=== PATIENT | female | born 1955 | race Caucasian/White ===

== ENCOUNTER 2017-05-13 19:40 | Emergency (ER) | payer MEDICARE ==
[2017-05-13 20:11] VITALS: PULSE 106; O2SAT 97
[2017-05-13 20:18] VITALS: BP 136/68
[2017-05-13] MEDS ORDERED: AMOXIL 500 MG PO ONE (20:18)
[2017-05-13] MEDS ORDERED: Mucinex 600MG ER Tabs PO ONE (20:18)
--- NOTE | 2017-05-13 20:26 | ERPHSYRPT ---
- History of Present Illness Time Seen by Provider: 05/13/17 20:19 Source: patient Exam Limitations: no limitations Patient Subjective Stated Complaint: pt states she has been coughing since yesterday. sttes she has been coughing up yellow mucous. and states she has been feeling unwell for approx 1 week Triage Nursing Assessment: pt alert and oriented, asnwers questions approp. pt ambulatory wqith steady gait noted. respirations nonlabored with lungs cta. skin pink warm and dry. Physician History: pt states she has been coughing since yesterday. sttes she has been coughing up yellow mucous. and states she has been feeling unwell for approx 1 week Timing/Duration: week(s) Cough Quality/Degree: dry cough Possible Cause: no prior episodes Associated Symptoms: fever International travel in last 2 weeks: No Allergies/Adverse Reactions: Sulfa (Sulfonamide Antibiotics) Allergy (Verified 05/13/17 20:14) Home Medications: Budesonide/Formoterol Fumarate [Symbicort 80-4.5 Mcg Inhaler] 2 puff IH BID 05/31 [History] Colesevelam HCl 625 mg [Welchol 625 mg] 1,875 mg PO BID 07/15/15 [History] Furosemide 40 mg [Lasix 40 MG] 40 mg PO DAILY 07/15/15 [History] Insulin Aspart [Novolog Flexpen] 15 unit SQ AC 07/15/15 [History] Levothyroxine Sodium 25 Mcg [Synthroid 25 Mcg] 25 mcg PO DAILY 07/15/15 [ History] Liraglutide [Victoza 2-Rah] 1.8 mg SQ BID 07/15/15 [History] Lisinopril 10 mg [Zestril 10 MG] 10 mg PO DAILY 07/15/15 [History] Mometasone Furoate [Nasonex] 2 spray NS DAILY 07/15/15 [History] Sitagliptin Phos/Metformin HCl [Janumet 50-500 mg Tablet] 1 tablet PO BID [History] Venlafaxine HCl ER 75 mg [Effexor XR 75 MG] 75 mg PO DAILY 07/15/15 [ History] Carvedilol 3.125 mg [Coreg 3.125 MG] 3.125 mg PO BID 07/31/15 [History] Nystatin Powder 15 gm [Nystop Powder 15 gm] 10 gm TP BIDPRN PRN 07/31/15 [ History] Potassium Chloride [Potassium Chloride 20MEQ/15ML] 20 meq PO TID 07/31/15 [ History] Hx Tetanus, Diphtheria Vaccination/Date Given: Yes Hx Influenza Vaccination/Date Given: Yes (feb 2017) Hx Pneumococcal Vaccination/Date Given: No Immunizations Up to Date: Yes - Review of Systems Constitutional: No Fever, No Chills Eyes: No Symptoms Ears, Nose, & Throat: No Symptoms Respiratory: Cough, No Dyspnea Cardiac: No Chest Pain, No Edema, No Syncope Abdominal/Gastrointestinal: No Abdominal Pain, No Nausea, No Vomiting, No Diarrhea Genitourinary Symptoms: No Dysuria Musculoskeletal: No Back Pain, No Neck Pain Skin: No Rash Neurological: No Dizziness, No Focal Weakness, No Sensory Changes Psychological: No Symptoms Endocrine: No Symptoms All Other Systems: Reviewed and Negative - Past Medical History Pertinent Past Medical History: Yes Neurological History: No Pertinent History ENT History: No Pertinent History Cardiac History: Other Respiratory History: Asthma, Bronchitis, Pneumonia Endocrine Medical History: Diabetes Type II Musculoskeletal History: No Pertinent History GI Medical History: No Pertinent History History: No Pertinent History Psycho-Social History: Depression Female Reproductive Disorders: Cervical Cancer Other Medical History: 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 heart, and leaky valve per pt - Past Surgical History Past Surgical History: Yes Gastrointestinal: Cholecystectomy Female Surgical History: Hysterectomy, Tubal Ligation Other Surgical History: D&C - Social History Smoking Status: Former smoker Exposure to second hand smoke: Yes Drug Use: none Patient Lives Alone: No - Nursing Vital Signs Nursing Vital Signs: Initial Vital Signs Temperature 99.0 F 05/13/17 20:02 Pulse Rate 106 H 05/13/17 20:02 Respiratory Rate 22 05/13/17 20:02 Blood Pressure 136/68 05/13/17 20:02 O2 Sat by Pulse Oximetry 96 05/13/17 20:02 Pain Scale Pain Intensity 0 - Physical Exam General Appearance: no apparent distress, alert Eye Exam: PERRL/EOMI, eyes nml inspection Ears, Nose, Throat Exam: normal ENT inspection, TMs normal, moist mucous membranes, pharyngeal erythema Neck Exam: normal inspection, non-tender, supple, full range of motion Respiratory Exam: normal breath sounds, lungs clear, No respiratory distress Cardiovascular Exam: regular rate/rhythm, normal heart sounds Gastrointestinal/Abdomen Exam: soft, No tenderness Back Exam: normal inspection, No CVA tenderness, No vertebral tenderness Extremity Exam: normal inspection, normal range of motion Neurologic Exam: alert, oriented x 3, cooperative, normal mood/affect, sensation nml, No motor deficits Skin Exam: normal color, warm, dry, No rash Lymphatic Exam: No adenopathy SpO2: 97 Oxygen Delivery: Room Air - Course Nursing assessment & vital signs reviewed: Yes Ordered Tests: Medication Summary Discontinued Medications Generic Name Dose Route Start Last Admin Trade Name Patrica PRN Reason Stop Dose Admin Amoxicillin 500 mg 05/13/17 20:18 Amoxil 500 Mg PO 05/13/17 20:19 STAT ONE Guaifenesin 1,200 mg 05/13/17 20:18 Mucinex 600mg Er Tabs PO 05/13/17 20:19 STAT ONE - Progress Progress: improved Air Movement: good Blood Culture(s) Obtained: No Antibiotics given: Yes Counseled pt/family regarding: diagnosis, need for follow-up - Departure Time of Disposition: 20:20 Departure Disposition: Home Clinical Impression: Bronchitis Condition: Good Critical Care Time: No Referrals: VON LIAO [Primary Care Provider] - Instructions: Bronchitis Additional Instructions: UPPER RESPIRATORY INFECTIONS 1. The signs and symptoms of a cold may last up to 10 days. These illnesses are due to viruses which are not treatable with antibiotics. 2. The following suggestions can aid in recovery and to minimize symptoms: A. Increase fluid intake. B. Acetaminophen or Ibuprofen as directed. C. Avoid smoking environments as this will increase the risk of developing pneumonia. D. For children, may use a cool mist vaporizer in the child's room. 3. Contact your Family Physician if you note: A. Persisten fever >103 for more than 3 days B. Breathing difficulty C. Productive cough of yellow/green sputum D. Illness greater than 7 days E. Persistent vomiting F. Stiff neck Prescriptions: Amoxicillin 500 mg Cap [Amoxil 500 mg] 500 mg PO TID #30 capsule Guaifenesin/Dextromethorphan [Mucinex Dm ER 600-30 mg Tablet] 1 each PO BID #20 tab.er.12h
[2017-05-13] MEDS ORDERED: AMOXIL 500 MG ONE (20:28)
== END 2017-05-13 21:12 | disposition home or self-care (01) ==
LOC: ED 19:40
DX: J40 Bronchitis, not specified as acute or chronic (principal)
CPT/HCPCS: 99283; A9270-GY

== ENCOUNTER 2018-03-07 05:47 | Day surgery (SDC) | payer MEDICARE ==
[2018-03-07] MEDS ORDERED: Ketamine HCl 50 MG/ML IV ONE (05:48)
[2018-03-07] MEDS ORDERED: DIPRIVAN 200 MG/20 ML IV ONE (05:48)
[2018-03-07] MEDS ORDERED: Lactated Ringers 1,000 ML IV SCH (06:00)
[2018-03-07] MEDS ORDERED: Lactated Ringers 1,000 ML IV ONE (06:37)
[2018-03-07 09:57] VITALS: BP 177/86; PULSE 102; O2SAT 95
--- NOTE | 2018-03-07 10:57 | OP ---
SURGERY DATE/TIME: 03/07/2018 0725 PREOPERATIVE DIAGNOSIS: Screening exam. POSTOPERATIVE DIAGNOSIS: Small polyp in the sigmoid colon. PROCEDURE: Colonoscopy with cold forceps biopsy of a polyp. SURGEON: Dr. Chavira. ANESTHESIA: MAC. Medications given by anesthesia department. HISTORY: The patient is a 62 year-old white female presenting now for screening colonoscopy. She was appraised of the risks of the procedure including the risk of perforation, phlebitis, untoward reaction to medication, bleeding and missed lesions. The patient verbalized her understanding and desired to have the procedure performed. DESCRIPTION OF PROCEDURE: The patient was given the medications by the anesthesia department. She had continuous pulse oximetry, ECG monitoring, intermittent blood pressure monitoring and tidal CO2 monitoring during the examination. She was placed in the left lateral decubitus position. A digital rectal examination was performed and revealed normal anal sphincter tone and no masses. The flexible Olympus pediatric colonoscope was used to intubate the rectum. A view of the colon was developed sequentially to the cecum. Upon insertion and withdrawal there was noted a small polyp in the proximal sigmoid colon which was biopsied using forceps and cold biopsy technique to destroy the lesion. No additional lesions were noted throughout the colon. The scope was removed from the patient who tolerated the procedure well and was sent back to OP recovery in good condition. The prep was noted to be good.
== END 2018-03-07 09:20 | disposition home or self-care (01) ==
LOC: SDC 05:47
PROVIDERS: ATTEND Family Medicine
DX: Z12.11 Encounter for screening for malignant neoplasm of colon (principal); K63.5 Polyp of colon; E11.9 Type 2 diabetes mellitus without complications; Z79.4 Long term (current) use of insulin; Z85.41 Personal history of malignant neoplasm of cervix uteri; Z79.899 Other long term (current) drug therapy
CPT/HCPCS: 82962; 94250; J2704

== ENCOUNTER 2019-02-05 17:02 | Emergency (ER) | payer MEDICARE ==
--- NOTE | 2019-02-05 17:17 | ERPHSYRPT ---
- History of Present Illness Time Seen by Provider: 02/05/19 17:17 Historian: patient Exam Limitations: no limitations Timing/Duration: day(s) (2 days ago onset), gradual onset Quality: cramping Abdominal Pain Onset Location: periumbilical Pain Radiation: no radiation Severity of Pain-Max: mild Severity of Pain-Current: mild Modifying Factors: Improves With: coughing Associated Symptoms: vomiting, No chest pain, No diaphoresis, No diarrhea, No fever/chills, No shortness of breath Previous symptoms: no prior history Allergies/Adverse Reactions: Sulfa (Sulfonamide Antibiotics) Allergy (Verified 02/05/19 17:27) Home Medications: Colesevelam HCl 625 mg [Welchol 625 mg] 1,875 mg PO BID 07/15/15 [History] Furosemide 40 mg [Lasix 40 MG] 40 mg PO DAILY 07/15/15 [History] Insulin Aspart [Novolog Flexpen] 15 unit SQ AC 07/15/15 [History] Levothyroxine Sodium 25 Mcg [Synthroid 25 Mcg] 25 mcg PO DAILY 07/15/15 [ History] Liraglutide [Victoza 2-Rah] 1.8 mg SQ BID 07/15/15 [History] Lisinopril 10 mg [Zestril 10 MG] 10 mg PO DAILY 07/15/15 [History] Sitagliptin Phos/Metformin HCl [Janumet 50-500 mg Tablet] 1 tablet PO BID [History] Venlafaxine HCl ER 75 mg [Effexor XR 75 MG] 75 mg PO DAILY 07/15/15 [ History] Carvedilol 3.125 mg [Coreg 3.125 MG] 12.5 mg PO BID 07/31/15 [History] Potassium Chloride [Potassium Chloride 20MEQ/15ML] 20 meq PO TID 07/31/15 [ History] Metformin HCl 500 mg [Glucophage 500 MG] 500 mg PO BIDWM 03/02/18 [History ] Omeprazole 40 mg PO DAILY 03/02/18 [History] Albuterol Sulfate [Ventolin Hfa] 2 puffs PO QID 02/05/19 [History] Atorvastatin Calcium 40 mg PO DAILY 02/05/19 [History] Budesonide/Formoterol Fumarate [Symbicort 80-4.5 Mcg Inhaler] 2 puff PO DAILY [History] Fluticasone Propionate [Flonase NASAL] 1 spray .ROUTE DAILY 02/05/19 [ History] Hx Tetanus, Diphtheria Vaccination/Date Given: Yes Hx Influenza Vaccination/Date Given: Yes (feb 2017) Hx Pneumococcal Vaccination/Date Given: No - Review of Systems Constitutional: No Symptoms, No Fever, No Chills Eyes: No Symptoms Ears, Nose, & Throat: No Symptoms Respiratory: Cough, No Dyspnea, No Dyspnea on Exertion (MASSEY), No Stridor, No Wheezing Cardiac: No Symptoms, No Chest Pain, No Edema, No Syncope Abdominal/Gastrointestinal: Abdominal Pain, Nausea, Vomiting, No Diarrhea Genitourinary Symptoms: No Symptoms, No Dysuria Musculoskeletal: No Symptoms, No Back Pain, No Neck Pain Skin: No Symptoms, No Rash Neurological: No Symptoms, No Dizziness, No Focal Weakness, No Sensory Changes Psychological: No Symptoms Endocrine: No Symptoms All Other Systems: Reviewed and Negative - Past Medical History Pertinent Past Medical History: Yes Neurological History: No Pertinent History ENT History: No Pertinent History Cardiac History: Other Respiratory History: Asthma, Bronchitis, Pneumonia Endocrine Medical History: Diabetes Type II Musculoskeletal History: No Pertinent History GI Medical History: No Pertinent History History: No Pertinent History Psycho-Social History: Depression Female Reproductive Disorders: Cervical Cancer Other Medical History: 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 heart, and leaky valve per pt - Past Surgical History Past Surgical History: Yes Neuro Surgical History: No Pertinent History Cardiac: No Pertinent History Respiratory: No Pertinent History Gastrointestinal: Cholecystectomy Genitourinary: No Pertinent History Musculoskeletal: No Pertinent History Female Surgical History: Hysterectomy, Tubal Ligation Other Surgical History: D&C - Social History Smoking Status: Former smoker Exposure to second hand smoke: Yes Drug Use: none Patient Lives Alone: No - Nursing Vital Signs Nursing Vital Signs: Initial Vital Signs Temperature 97.1 F 02/05/19 17:15 Pulse Rate 97 H 02/05/19 17:15 Respiratory Rate 18 02/05/19 17:15 Blood Pressure 143/59 02/05/19 17:15 O2 Sat by Pulse Oximetry 96 02/05/19 17:15 Pain Scale Pain Intensity 0 - Physical Exam General Appearance: no apparent distress, obese Eye Exam: PERRL/EOMI, eyes nml inspection Ears, Nose, Throat Exam: normal ENT inspection Neck Exam: normal inspection, non-tender Respiratory Exam: airway intact, rhonchi, No respiratory distress, No wheezing Cardiovascular Exam: regular rate/rhythm, normal heart sounds Gastrointestinal/Abdomen Exam: soft, normal bowel sounds, tenderness (mild, periumbilical and lower) Pelvic Exam: not done Rectal Exam: deferred Extremity Exam: normal inspection, normal range of motion Neurologic Exam: alert, oriented x 3, cooperative, normal mood/affect Skin Exam: normal color, warm, dry - Course EKG Interpreted by Me: RATE ([id number]), Sinus Tach, NORMAL AXIS, NORMAL INTERVALS, NORMAL QRS, Non-specific ST Changes - Radiology Exams Chest X-ray Interpretation: Interpreted by me, Reviewed by me, Negative Left Knee X-ray Interpretation: Interpreted by me, Reviewed by me, Negative - CT Exams Abdomen/Pelvis CT Interpretation: Negative, Discussed w/radiologist, No appendicitis Ordered Tests: Active Orders 24 hr Category Date Time Status EKG-ER Only STAT Care 02/05/19 17:51 Active IV Insertion STAT Care 02/05/19 17:51 Active ABDOMEN AND PELVIS W/0 CONTRAS [CT] Stat Exams 02/05/19 18:37 Taken CHEST 1 VIEW (PORTABLE) Stat Exams 02/05/19 17:52 Taken KNEE (3 VIEWS) Stat Exams 02/05/19 18:37 Taken AMYLASE Stat Lab 02/05/19 18:05 Completed CBC W DIFF Stat Lab 02/05/19 18:05 Completed CMP Stat Lab 02/05/19 18:05 Completed CULTURE,URINE Stat Lab 02/05/19 17:45 Received LIPASE Stat Lab 02/05/19 18:05 Completed TROPONIN Q3H Lab 02/05/19 18:05 Completed UA W/RFX UR CULTURE Stat Lab 02/05/19 17:45 Completed Medication Summary Discontinued Medications Generic Name Dose Route Start Last Admin Trade Name Freq PRN Reason Stop Dose Admin Lactated Ringer's 1,000 mls @ 999 mls/hr 02/05/19 17:50 02/05/19 19:44 Lactated Ringers IV 02/05/19 18:50 Infused .Q1H1M ONE Infusion Lactated Ringer's Confirm 02/05/19 17:58 Lactated Ringers Administered 02/05/19 17:59 Dose 1,000 mls @ ud IV .STK-MED ONE Ondansetron HCl 4 mg 02/05/19 17:50 02/05/19 17:59 Zofran 4 Mg/2 Ml Vial IV 02/05/19 17:51 4 mg STAT ONE Administration Ondansetron HCl Confirm 02/05/19 17:58 Zofran 4 Mg/2 Ml Vial Administered 02/05/19 17:59 Dose 4 mg .ROUTE .STK-MED ONE Lab/Rad Data: Laboratory Result Diagrams 02/05/19 18:05 02/05/19 18:05 Laboratory Results 02/05/19 02/05/19 02/05/19 Range/Units 18:05 18:05 18:05 WBC 6.7 (4.0-10.5) K/mm3 RBC 3.80 L (4.1-5.4) M/mm3 Hgb 11.3 L (12.0-16.0) gm/dl Hct 36.8 (35-47) % MCV 96.8 (78-100) fl MCH 29.7 (26-32) pg MCHC 30.7 L (32-36) g/dl RDW 14.8 H (11.5-14.0) % Plt Count 254 (150-450) K/mm3 MPV 10.4 H (6-9.5) fl Gran % 63.5 (36.0-66.0) % Eos # (Auto) 0.25 (0-0.5) Absolute Lymphs (auto) 1.56 (1.0-4.6) Absolute Monos (auto) 0.62 (0.0-1.3) Lymphocytes % 23.2 L (24.0-44.0) % Monocytes % 9.2 (0.0-12.0) % Eosinophils % 3.7 (0.00-5.0) % Basophils % 0.4 (0.0-0.4) % Absolute Granulocytes 4.25 (1.4-6.9) Basophils # 0.03 (0-0.4) Sodium 147 H (137-145) mmol/L Potassium 4.4 (3.5-5.1) mmol/L Chloride 112 H (98-107) mmol/L Carbon Dioxide 27 (22-30) mmol/L Anion Gap 12.1 (5-15) MEQ/L BUN 16 (7-17) mg/dL Creatinine 0.75 (0.52-1.04) mg/dL Estimated GFR > 60.0 ML/MIN Glucose 118 H (74-106) mg/dL Calcium 9.2 (8.4-10.2) mg/dL Total Bilirubin 0.40 (0.2-1.3) mg/dL AST 52 H (14-36) U/L ALT 27 (0-35) U/L Alkaline Phosphatase 100 (38-126) U/L Troponin I < 0.012 (0.000-0.034) ng/mL Serum Total Protein 7.5 (6.3-8.2) g/dL Albumin 4.2 (3.5-5.0) g/dL Amylase 64 (30-110) U/L Lipase 92 (23-300) U/L Urine Color (YELLOW) Urine Appearance (CLEAR) Urine pH (5-6) Ur Specific [place] (1.005-1.025) Urine Protein (Negative) Urine Ketones (NEGATIVE) Urine Blood (0-5) Oliver/ul Urine Nitrite (NEGATIVE) Urine Bilirubin (NEGATIVE) Urine Urobilinogen (0-1) mg/dL Ur Leukocyte Esterase (NEGATIVE) Urine WBC (Auto) (0-5) /HPF Urine RBC (Auto) (0-2) /HPF U Hyaline Cast (Auto) (0-2) /LPF U Epithel Cells (Auto) (FEW) /HPF Urine Bacteria (Auto) (NEGATIVE) /HPF Urine Mucus (Auto) (NEGATIVE) /HPF Urine Culture Reflexed (NO) Urine Glucose (NEGATIVE) mg/dL 02/05/19 Range/Units 17:45 WBC (4.0-10.5) K/mm3 RBC (4.1-5.4) M/mm3 Hgb (12.0-16.0) gm/dl Hct (35-47) % MCV (78-100) fl MCH (26-32) pg MCHC (32-36) g/dl RDW (11.5-14.0) % Plt Count (150-450) K/mm3 MPV (6-9.5) fl Gran % (36.0-66.0) % Eos # (Auto) (0-0.5) Absolute Lymphs (auto) (1.0-4.6) Absolute Monos (auto) (0.0-1.3) Lymphocytes % (24.0-44.0) % Monocytes % (0.0-12.0) % Eosinophils % (0.00-5.0) % Basophils % (0.0-0.4) % Absolute Granulocytes (1.4-6.9) Basophils # (0-0.4) Sodium (137-145) mmol/L Potassium (3.5-5.1) mmol/L Chloride (98-107) mmol/L Carbon Dioxide (22-30) mmol/L Anion Gap (5-15) MEQ/L BUN (7-17) mg/dL Creatinine (0.52-1.04) mg/dL Estimated GFR ML/MIN Glucose (74-106) mg/dL Calcium (8.4-10.2) mg/dL Total Bilirubin (0.2-1.3) mg/dL AST (14-36) U/L ALT (0-35) U/L Alkaline Phosphatase (38-126) U/L Troponin I (0.000-0.034) ng/mL Serum Total Protein (6.3-8.2) g/dL Albumin (3.5-5.0) g/dL Amylase (30-110) U/L Lipase (23-300) U/L Urine Color YELLOW (YELLOW) Urine Appearance CLOUDY (CLEAR) Urine pH 5.0 (5-6) Ur Specific [place] 1.027 (1.005-1.025) Urine Protein 30 (Negative) Urine Ketones NEGATIVE (NEGATIVE) Urine Blood NEGATIVE (0-5) Oliver/ul Urine Nitrite NEGATIVE (NEGATIVE) Urine Bilirubin NEGATIVE (NEGATIVE) Urine Urobilinogen 2 (0-1) mg/dL Ur Leukocyte Esterase NEGATIVE (NEGATIVE) Urine WBC (Auto) 6-10 (0-5) /HPF Urine RBC (Auto) 0-2 (0-2) /HPF U Hyaline Cast (Auto) 0-2 (0-2) /LPF U Epithel Cells (Auto) MODERATE (FEW) /HPF Urine Bacteria (Auto) MODERATE (NEGATIVE) /HPF Urine Mucus (Auto) MODERATE (NEGATIVE) /HPF Urine Culture Reflexed NO (NO) Urine Glucose NEGATIVE (NEGATIVE) mg/dL - Progress Progress: improved, re-examined Progress Note: 02/05/19 22:26 She feels well after IVF and zofran. Ask for cheratussin AC cough syrup (had it in the past). Rx that for viral bronchitis and zofran for mild viral GE. Counseled pt/family regarding: lab results, diagnosis, need for follow-up, rad results - Departure Departure Disposition: Home Clinical Impression: Bronchitis, Post-tussive emesis Nausea & vomiting Qualifiers: Vomiting type: unspecified Vomiting Intractability: non-intractable Qualified Code(s): R11.2 - Nausea with vomiting, unspecified Condition: Stable Critical Care Time: No Referrals: VON LIAO [Primary Care Provider] - Instructions: Nausea -- Adult Additional Instructions: Med. as directed, advance diet as able, recheck if not better. Plan of Treatment: Rx and recheck prn. Prescriptions: Ondansetron ODT 4 MG [Zofran Odt 4 mg] 4 mg PO Q6H PRN PRN #12 tab.rapdis PRN Reason: Nausea/Vomiting Guaifenesin/Codeine Phos [Cheratussin AC Syrup] 10 ml PO Q4-6HPRN PRN #238 liquid PRN Reason: Cough
[2019-02-05] MEDS ORDERED: Zofran 4 MG/2 ML VIAL IV ONE (17:50)
[2019-02-05] MEDS ORDERED: Lactated Ringers 1,000 ML IV ONE ×2 (17:50→17:58)
[2019-02-05] MEDS ORDERED: Zofran 4 MG/2 ML VIAL ONE (17:58)
[2019-02-05 18:10] LABS: BASOPHIL % 0.4 % (0.0-0.4); Basophil (Absolute #) 0.03 (0-0.4); Eosinophil % 3.7 % (0.00-5.0); Eosinophil (Absolute #) 0.25 (0-0.5); Granulocyte Absolute (ANC) 4.25 (1.4-6.9); Granulocytes % 63.5 % (36.0-66.0); Hematocrit 36.8 % (35-47); Hemoglobin 11.3 gm/dl (12.0-16.0); Lymphocyte (Absolute #) 1.56 (1.0-4.6); Lymphocytes % 23.2 % (24.0-44.0); Mean Cell Volume 96.8 fl (78-100); Mean Corpuscular Hemoglobin 29.7 pg (26-32); Mean Corpuscular Hgb Concent. 30.7 g/dl (32-36); Mean Platelet Volume 10.4 fl (6-9.5); Monocyte (Absolute #) 0.62 (0.0-1.3); Monocytes % 9.2 % (0.0-12.0); Platelet Count 254 K/mm3 (150-450); Red Cell Distribution Width 14.8 % (11.5-14.0); White Blood Count 6.7 K/mm3 (4.0-10.5)
[2019-02-05 18:19] LABS: Appearance CLOUDY (CLEAR); Bacteria MODERATE /HPF (NEGATIVE); Bilirubin NEGATIVE (NEGATIVE); Blood NEGATIVE Ery/ul (0-5); Epithelial Cells MODERATE /HPF (FEW); Glucose NEGATIVE (NEGATIVE); Hyaline Casts 0-2 /LPF (0-2); Ketones NEGATIVE (NEGATIVE); Leukocyte Esterase NEGATIVE (NEGATIVE); Mucus MODERATE /HPF (NEGATIVE); Nitrite NEGATIVE (NEGATIVE); Protein,Urine Dip 30 (Negative); RBC 0-2 /HPF (0-2); Specific Gravity 1.027 (1.005-1.025); Urobilinogen 2 mg/dL (0-1)
[2019-02-05 18:22] LABS: ALBUMIN 4.2 g/dL (3.5-5.0); ALKALINE PHOSPHATASE 100 U/L (38-126); AMYLASE 64 U/L (30-110); ANION GAP 12.1 MEQ/L (5-15); BLOOD UREA NITROGEN 16 mg/dL (7-17); CHLORIDE 112 mmol/L (98-107); Calcium 9.2 mg/dL (8.4-10.2); Carbon Dioxide 27 mmol/L (22-30); Creatinine 1 0.75 mg/dL (0.52-1.04); Glucose 118 mg/dL (74-106); LIPASE 92 U/L (23-300); Potassium 4.4 mmol/L (3.5-5.1); SGOT/AST 52 U/L (14-36); SGPT/ALT 27 U/L (0-35); SODIUM 147 mmol/L (137-145); Total Protein 7.5 g/dL (6.3-8.2)
[2019-02-05 19:43] VITALS: BP 125/74
[2019-02-05 20:04] VITALS: PULSE 98; O2SAT 96
--- NOTE | 2019-02-06 09:54 | XRAY ---
Exam: AP upright portable chest film sitting on a cart from 02/05/2019. Comparison: PA and lateral upright chest films from 07/09/2016 and 03/30/2016. Indication: Vomiting. Findings: The film was obtained in a lordotic projection. There is mild tortuosity of both the ascending and descending thoracic aorta representing no change. I believe there is some mild streaky chronic discoid atelectasis or fibrotic scarring within the right suprahilar projection. This appear to be more prominent on the prior chest films. The lungs are mildly hypoinflated. Pulmonary vascularity is within normal limits. The remainder the lung mcallister appears clear. No pneumothorax or pleural effusion is seen. No acute osseous process is seen. I believe there are probably bilateral cervical ribs at C7, better developed on the right than left. In fact, there may be fusion between the cervical rib of C7 on the right and the right first thoracic rib. Impression: 1. I note a small focus of fibrotic scarring or chronic discoid atelectasis within the right suprahilar projection. This appears somewhat less prominent as compared to 07/09/2016. 2. Lordotic AP chest film revealing no other acute cardiopulmonary disease. 3. Probable bilateral cervical ribs at C7, more developed on the right than left.
--- NOTE | 2019-02-06 16:20 | XRAY ---
Exam: CT of the abdomen and pelvis without IV contrast from 02/05/2019. CTDI: 23.68 mGy Comparison: CT of the abdomen without and with IV contrast from 07/16/2010. 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 Technique: Non-IV contrast axial images were obtained through the abdomen and pelvis. Reconstructed coronal and sagittal images were created and reviewed. Findings: The patient is morbidly obese. The CT weld fitter image reveals moderate right hip osteoarthritis which has progressed as compared to 07/16/2010. Degenerative disc disease appears to have progressed at T11-T12 as compared to 07/16/2010 as well. Advanced degenerative disc disease at L1-L2 appears about the same. The lung bases appear clear. Assessment of the solid organs of the abdomen is limited without the use of IV contrast. The liver appears mildly enlarged. No definite focal hepatic mass or intrahepatic biliary duct distention is seen. The gallbladder is partially distended and reveals no dense calcifications within it. The spleen measures a maximum of about 13 cm in transverse diameter which is borderline enlarged. I believe this is similar to 07/16/2010. No focal splenic mass is seen. The pancreas appears grossly unremarkable. The adrenal glands reveal an oval-shaped nodule within the right adrenal gland measuring about 1.8 cm x 1.2 cm in cross section on axial image #18. This is not well seen on the prior study. It measures an average of +54 Hounsfield units. Therefore, I cannot definitively say that this represents an adenoma. Consider further evaluation with MRI of the adrenal glands with in phase and out of phase imaging, or alternatively, a CT of the abdomen with attention to the adrenal glands with IV contrast per adrenal gland protocol. The left adrenal gland appears unremarkable. The kidneys appear of normal size and shape. No renal calculi or hydronephrosis is seen. No gross renal mass is seen. The abdominal aorta are is mildly tortuous and reveals minimal atherosclerotic vascular calcification within the abdominal aorta and right common iliac artery. No abnormal retroperitoneal lymphadenopathy is seen. I see no free intraperitoneal air. I again note a fat-containing umbilical hernia which contains a calcium rimmed, oval shaped, soft tissue density within it just to the left of midline measuring about 2.4 cm in AP dimension, 1.7 cm in width, and 2.5 cm in craniocaudal dimension. This could possibly relate to focal fat necrosis or a calcified lymph node. The umbilical hernia measures about 3.2 cm in width, 4.6 cm in craniocaudal dimension, and 3.3 cm in AP depth. The bowel appears nonobstructed. The appendix is not well seen, but I see no secondary findings to suggest appendicitis. Furthermore, the patient has a surgical history of prior appendectomy. Scattered colonic stool is noted. The uterus appears to be surgically absent. No free intraperitoneal fluid is seen. The urinary bladder is only minimally distended. The deep pelvic sidewalls are unremarkable. No enlarged pelvic lymph nodes or other pelvic mass is seen. The skeleton reveals mild degenerative changes within both sacroiliac joints, left greater than right. Posterior lumbar facet joint arthropathy is seen, most severe at L4-L5 and L5-S1 bilaterally. There is slight anterolisthesis of L4 over L5 which I believe is due to posterior facet joint arthropathy, as no spondylolysis is seen. There is moderate degenerative disc disease at L5-S1. I also note marked degenerative disc disease at L1-L2 and T11-T12. There is at least moderate osteoarthritis of the right hip which has progressed as compared to 07/16/2010. No acute osseous process is seen. Impression: 1. There is again noted to be a fat-containing umbilical hernia, but I now detect a new calcium rimmed, oval-shaped, soft tissue density within the umbilical hernia sac measuring 2.4 cm x 1.7 cm x 2.5 cm. This soft tissue density contains a focal low-attenuation center suggesting fat. This may possibly relate to focal fat necrosis or a calcified lymph node. 2. The liver appears mildly enlarged. The spleen is borderline enlarged. These findings appear similar to 07/16/2010. 3. There appears to be a small oval-shaped solid nodule within the right adrenal gland which is easier to see on today's exam as compared to 07/16/2010. See axial images #17 and #18. See above discussion and recommendations. 4. Surgically absent uterus. 5. Skeletal findings, as discussed above. Some osteoarthritis has progressed. 6. No other acute process is seen within the abdomen or pelvis.
--- NOTE | 2019-02-06 21:24 | XRAY ---
Exam: 4 views of the left knee from 02/05/2019. Comparison: None. Indication: Fall, left knee bruising. Findings: AP, both oblique images, and a crosstable lateral of the left knee were obtained.. I see no acute fracture, dislocation, or suprapatellar joint effusion. There is mild to moderate narrowing of the medial compartment of the left knee joint with some mild osteophyte formation on both sides of the joint space medially. The lateral compartment of the left knee joint space is adequately preserved, although I see some minimal marginal osteophyte formation laterally on both sides of the joint space, too. Mild hypertrophic spurring of the tibial eminences is seen. I suspect moderate narrowing of the patellofemoral joint with mild marginal spurring on both sides of the patellofemoral joint. A calcified fabella is seen posterior to the left knee on the lateral image. No focal bone destruction is seen. Some soft tissue prominence is seen about the left knee. Correlate clinically. No radiopaque soft tissue foreign body is seen. Impression: 1. No acute left knee fracture, dislocation, or suprapatellar joint effusion is seen. 2. There is mild generalized soft tissue prominence about the left knee. Correlate clinically. No radiopaque soft tissue foreign body is seen. 3. There is mild to moderate tricompartmental osteoarthritis of the left knee, affecting the patellofemoral joint and medial compartment to the greatest extent.
== END 2019-02-05 20:06 | disposition home or self-care (01) ==
LOC: ED 17:02
DX: J40 Bronchitis, not specified as acute or chronic (principal); R11.2 Nausea with vomiting, unspecified
CPT/HCPCS: 36000; 36415; 71045; 73562; 74176; 80053; 81001; 82150; 83690; 84484; 85025; 87077; 87086; 87186; 93005; 96360; 96374; 99284; J2405

== ENCOUNTER 2019-03-18 16:00 | Emergency (ER) | payer MEDICARE ==
--- NOTE | 2019-03-18 16:43 | ERPHSYRPT ---
- History of Present Illness Time Seen by Provider: 03/18/19 16:30 Source: patient Exam Limitations: no limitations Patient Subjective Stated Complaint: pt alert and walked in, resp labored with excertion which is normal for her, skin w/d/p. slight edema to lower legs that is normal Triage Nursing Assessment: pt here for a cough for 2 weeks now, was seen by and placed on tesslon pearls. but continues to cough, no fever. Physician History: Cough and congestion for 2 weeks. Medical provider called in prescriptions 2 days ago without seeing her. Symptoms worsened over the past two days in regards to chest congestion and starting to lose voice. Timing/Duration: week(s) (2) Cough Quality/Degree: moderate, dry cough Possible Cause: no prior episodes Modifying Factors: Worsens With: coughing Associated Symptoms: nasal congestion, nasal drainage, wheezing, No fever, No chills, No chest pain/soreness, No cough, No dizziness, No earache, No facial pain, No headache, No lightheadedness, No muscle aches, No shortness of breath, No sinus infection, No sore throat International travel in last 2 weeks: No Allergies/Adverse Reactions: Sulfa (Sulfonamide Antibiotics) Allergy (Verified 03/18/19 16:35) Home Medications: Colesevelam HCl 625 mg [Welchol 625 mg] 1,875 mg PO BID 07/15/15 [History] Furosemide 40 mg [Lasix 40 MG] 40 mg PO DAILY 07/15/15 [History] Insulin Aspart [Novolog Flexpen] 15 unit SQ AC 07/15/15 [History] Levothyroxine Sodium 25 Mcg [Synthroid 25 Mcg] 25 mcg PO DAILY 07/15/15 [ History] Liraglutide [Victoza 2-Rah] 1.8 mg SQ BID 07/15/15 [History] Lisinopril 10 mg [Zestril 10 MG] 10 mg PO DAILY 07/15/15 [History] Sitagliptin Phos/Metformin HCl [Janumet 50-500 mg Tablet] 1 tablet PO BID [History] Venlafaxine HCl ER 75 mg [Effexor XR 75 MG] 75 mg PO DAILY 07/15/15 [ History] Carvedilol 3.125 mg [Coreg 3.125 MG] 12.5 mg PO BID 07/31/15 [History] Potassium Chloride [Potassium Chloride 20MEQ/15ML] 20 meq PO TID 07/31/15 [ History] Metformin HCl 500 mg [Glucophage 500 MG] 500 mg PO BIDWM 03/02/18 [History ] Omeprazole 40 mg PO DAILY 03/02/18 [History] Albuterol Sulfate [Ventolin Hfa] 2 puffs PO QID 02/05/19 [History] Atorvastatin Calcium 40 mg PO DAILY 02/05/19 [History] Budesonide/Formoterol Fumarate [Symbicort 80-4.5 Mcg Inhaler] 2 puff PO DAILY [History] Fluticasone Propionate [Flonase NASAL] 1 spray .ROUTE DAILY 02/05/19 [ History] Hx Tetanus, Diphtheria Vaccination/Date Given: Yes Hx Influenza Vaccination/Date Given: Yes Hx Pneumococcal Vaccination/Date Given: Yes Immunizations Up to Date: Yes - Review of Systems Constitutional: No Fever, No Chills, No Fatigue Eyes: No Eye Pain, No Vision Changes Ears, Nose, & Throat: Nose Congestion, Nose Discharge, Sinus Drainage, Hoarse, No Ear Pain, No Mouth Swelling, No Throat Pain, No Throat Swelling, No Painful Swallowing Respiratory: Cough, No Dyspnea, No Dyspnea on Exertion (MASSEY) Cardiac: No Chest Pain, No Edema, No Palpitations, No Syncope Abdominal/Gastrointestinal: No Abdominal Pain, No Nausea, No Vomiting, No Melena Genitourinary Symptoms: No Dysuria, No Frequency, No Hematuria, No Flank Pain Musculoskeletal: No Back Pain, No Neck Pain Skin: No Pruritis, No Rash Neurological: No Focal Weakness, No Headache, No Lethargy, No Parasthesia, No Speech Changes Psychological: No Anxiety Endocrine: No Excessive Sweating Hematologic/Lymphatic: No Easy Bleeding, No Easy Bruising All Other Systems: Reviewed and Negative - Past Medical History Pertinent Past Medical History: Yes Neurological History: No Pertinent History ENT History: No Pertinent History Cardiac History: Other Respiratory History: Asthma, Bronchitis, Pneumonia Endocrine Medical History: Diabetes Type II Musculoskeletal History: No Pertinent History GI Medical History: No Pertinent History History: No Pertinent History Psycho-Social History: Depression Female Reproductive Disorders: Cervical Cancer Other Medical History: 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 heart, and leaky valve per pt - Past Surgical History Past Surgical History: Yes Neuro Surgical History: No Pertinent History Cardiac: No Pertinent History Respiratory: No Pertinent History Gastrointestinal: Cholecystectomy Genitourinary: No Pertinent History Musculoskeletal: No Pertinent History Female Surgical History: Hysterectomy, Tubal Ligation Other Surgical History: D&C - Social History Smoking Status: Former smoker Exposure to second hand smoke: No Drug Use: none Patient Lives Alone: No - Female History Hx Last Menstrual Period: psot Hx Now: No - Nursing Vital Signs Nursing Vital Signs: Initial Vital Signs Temperature 98.3 F 03/18/19 16:27 Pulse Rate 108 H 03/18/19 16:27 Respiratory Rate 22 03/18/19 16:27 Blood Pressure 158/80 03/18/19 16:27 O2 Sat by Pulse Oximetry 94 L 03/18/19 16:27 Pain Scale Pain Intensity 10 - Physical Exam General Appearance: no apparent distress, alert Eye Exam: PERRL/EOMI, eyes nml inspection, No scleral icterus, No pale conjunctivae, No photophobia Ears, Nose, Throat Exam: normal ENT inspection, TMs normal, pharynx normal, moist mucous membranes, No dry mucous membranes, No TM abnormal (R), No TM abnormal (L), No pharyngeal erythema, No tonsillar exudate Neck Exam: normal inspection, non-tender, supple, full range of motion, No meningismus, No Brudzinski, No lymphadenopathy, No midline tenderness Respiratory Exam: lungs clear, airway intact, diminished breath sounds, No chest tenderness, No respiratory distress, No accessory muscle use, No prolonged expirations, No crackles/rales, No rhonchi, No wheezing, No stridor, No pleural rub Cardiovascular Exam: regular rate/rhythm, normal heart sounds, normal peripheral pulses, capillary refill <2 sec Gastrointestinal/Abdomen Exam: soft, normal bowel sounds, No tenderness, No distention, No guarding, No rebound Back Exam: normal inspection, normal range of motion, No CVA tenderness, No vertebral tenderness, No rash Extremity Exam: normal inspection, normal range of motion, pelvis stable, No calf tenderness, No janet's sign, No swelling Neurologic Exam: alert, oriented x 3, cooperative, testing projects administrator II-XII nml as tested, normal mood/affect, sensation nml, No motor deficits Skin Exam: normal color, warm, dry, No rash, No petechiae, No jaundice, No cyanosis, No ecchymosis SpO2 Interpretation: normal SpO2: 94 O2 Delivery: Room Air - Course Nursing assessment & vital signs reviewed: Yes - Radiology Exams Chest X-ray Interpretation: Interpreted by me, Reviewed by me, No Fracture, Other (no change in comparison to Chest X-Ray from 02/05/2019) Ordered Tests: Active Orders 24 hr Category Date Time Status CHEST 1 VIEW (PORTABLE) Stat Exams 03/18/19 16:35 Taken Peak Expiratory Flow Rate DAILY RT 03/18/19 07:00 Active Respiratory MDI STAT RT 03/18/19 17:49 Ordered Respiratory Therapy Assessment DAILY RT 03/19/19 07:00 Active Medication Summary Generic Name Dose Route Start Last Admin Trade Name Freq PRN Reason Stop Dose Admin Albuterol Sulfate 2 puff 03/18/19 17:48 Proventil Common Canister IH 04/17/19 17:47 Q4H PRN PRN COUGH Discontinued Medications Generic Name Dose Route Start Last Admin Trade Name Freq PRN Reason Stop Dose Admin Albuterol/Ipratropium 3 ml 03/18/19 16:36 03/18/19 17:15 Duoneb 0.5-3 Mg/3 Ml Neb IH 03/18/19 16:37 3 ml STAT ONE Administration Albuterol/Ipratropium Confirm 03/18/19 16:55 Duoneb 0.5-3 Mg/3 Ml Neb Administered 03/18/19 16:56 Dose 3 ml IH .STK-MED ONE Prednisone 60 mg 03/18/19 16:36 03/18/19 16:45 Deltasone 20 Mg PO 03/18/19 16:37 60 mg STAT ONE Administration Prednisone Confirm 03/18/19 16:44 Deltasone 20 Mg Administered 03/18/19 16:45 Dose 60 mg .ROUTE .STK-MED ONE - Progress Progress: improved, re-examined Air Movement: good Progress Note: 03/18/19 17:45 Patient improved significantly in regards to airflow through the bronchi/ bronchioles with no rhonchi, rales, crackles or wheeze Blood Culture(s) Obtained: No Antibiotics given: No Counseled pt/family regarding: diagnosis, need for follow-up, rad results - Departure Departure Disposition: Home Clinical Impression: Elevated blood pressure reading without diagnosis of hypertension Acute bronchitis Qualifiers: Bronchitis organism: other organism Qualified Code(s): J20.8 - Acute bronchitis due to other specified organisms Condition: Good Critical Care Time: No Referrals: VON LIAO [Primary Care Provider] - Follow Up with PCP/3 days Instructions: Cough, Adult (DC), Acute Bronchitis, Adult (DC), DASH Diet Additional Instructions: your chest x-ray was read as negative today by the emergency department physician. We will notify you in the morning of 03/19/2019 if the radiologist has a different interpretation that change her management. Follow up with your doctor in 3 days to check response to therapy. Return immediately back to the murmur me if you have any new shortness of breath, new fever, worse cough, new chest pain, worsening chest tightness, new abdominal pain, or any other concerning signs or symptoms that were not present at today's emergency department visit for immediate reevaluation in the emergency department. Prescriptions: Albuterol Sulfate [Proair Hfa] 8.5 gm IH Q4H PRN PRN #1 [id number] PRN Reason: Wheezing/Chest Congestion Dextromethorphan Hb/Doxylamine [Sm Nite Time Cough Liquid] 5 ml PO Q6-8HPRN PRN #90 ml PRN Reason: Cough
[2019-03-18] MEDS ORDERED: DELTASONE 20 MG ONE (16:44)
[2019-03-18] MEDS: DELTASONE 20 MG PO ONE (16:45)
[2019-03-18] MEDS ORDERED: DUONEB 0.5-3 MG/3 ml Neb IH ONE (16:55)
[2019-03-18 17:11] VITALS: BP 135/69
[2019-03-18] MEDS: DUONEB 0.5-3 MG/3 ml Neb IH ONE (17:15)
[2019-03-18] MEDS ORDERED: PROVENTIL COMMON CANISTER IH PRN (17:48)
[2019-03-18] MEDS ORDERED: Ventolin Hfa MDI IH ONE (18:01)
[2019-03-18] MEDS: Ventolin Hfa MDI IH ONE (18:10)
[2019-03-18 18:24] VITALS: PULSE 80; O2SAT 96
--- NOTE | 2019-03-18 20:02 | XRAY ---
Indication: Cough 2 weeks. Comparison: February 05, 2019. Portable apical lordotic chest demonstrates stable right suprahilar atelectasis/scarring. Again no focal infiltrate, consolidation, or large effusion. Heart is not enlarged. Bony thorax intact. Impression: Again nonacute chest with chronic features.
== END 2019-03-18 18:25 | disposition home or self-care (01) ==
LOC: ED 16:00
DX: R03.0 Elevated blood-pressure reading, without diagnosis of hypertension (principal); J20.8 Acute bronchitis due to other specified organisms; E11.9 Type 2 diabetes mellitus without complications; Z79.4 Long term (current) use of insulin; Z79.01 Long term (current) use of anticoagulants; Z79.899 Other long term (current) drug therapy; J45.909 Unspecified asthma, uncomplicated
CPT/HCPCS: 71045; 94150; 94640; 99283; 99291; 99292; A9270-GY

== ENCOUNTER 2021-10-08 21:31 | Inpatient (IN) | payer MEDICARE ==
[2021-10-08] MEDS ORDERED: PIPERACILLIN/TAZOBACTAM 3.375 GM in Sodium Chloride 100ML MINI-BAG PLUS 100 ML IV ONE (22:15)
[2021-10-08] MEDS ORDERED: VANCOMYCIN 1 GRAM/200 ML BAG 1 GM/200 ML PIGGYBACK IV ONE (22:15)
[2021-10-08] MEDS ORDERED: PIPERACILLIN/TAZOBACTAM IV ONE (22:39)
[2021-10-08] MEDS ORDERED: Sodium Chloride 100ML MINI-BAG PLUS 100 ML IV ONE (22:40)
[2021-10-08] MEDS: Sodium Chloride 0.9% 1000 ML 1,000 ML IV SCH (22:43)
--- NOTE | 2021-10-08 22:48 | ERPHSYRPT ---
- History of Present Illness Time Seen by Provider: 10/08/21 21:55 Source: patient Exam Limitations: no limitations Patient Subjective Stated Complaint: pt states "I have this sore on my side from bed bugs." Triage Nursing Assessment: pt ambulated into the er; pt is axo x4/ c/o bug bite; pt states 10/10 pain to left lateral breast pain; pt states hx of bed bugs; hard, red, hot to the touch area present to left breast; wound measures 10 cm x 12 cm; pustual present to center of wound Physician History: Patient is a 65-year-old female presents to emergency department for evaluation of cellulitis to her left posterior lateral chest wall. Patient states that she was bitten by bedbugs. Patient believes bedbugs initiated the cellulitis. Symptoms started approximately 2 days ago. Symptoms have been progressive. Te tan is up-to-date. Patient rates her pain 10 out of 10. Pain worse with palpation and improved with rest. Patient denies fevers. No nausea or vomiting. No chest pain or shortness of breath. No diarrhea. Patient voices no other complaints or concerns at this time. Timing/Duration: day(s) (2 days ago) Severity: moderate Modifying Factors: Improves With: nothing Associated Symptoms: No nausea, No vomiting, No fever, No syncope, No seizure Allergies/Adverse Reactions: Sulfa (Sulfonamide Antibiotics) Allergy (Verified 10/08/21 21:51) Home Medications: Colesevelam HCl 625 mg [Welchol 625 mg] 1,875 mg PO BID 07/15/15 [History] Furosemide 40 mg [Lasix 40 MG] 80 mg PO DAILY 07/15/15 [History] Insulin Aspart [Novolog Flexpen] 15 unit SQ AC 07/15/15 [History] Levothyroxine Sodium 25 Mcg [Synthroid 25 Mcg] 25 mcg PO DAILY 07/15/15 [History] Liraglutide [Victoza 2-Rah] 1.8 mg SQ BID 07/15/15 [History] Lisinopril 10 mg [Zestril 10 MG] 20 mg PO DAILY 07/15/15 [History] Sitagliptin Phos/Metformin HCl [Janumet 50-500 mg Tablet] 1 tablet PO BID 07/15/15 [History] Venlafaxine HCl ER 75 mg [Effexor XR 75 MG] 75 mg PO DAILY 07/15/15 [History] Carvedilol 3.125 mg [Coreg 3.125 MG] 12.5 mg PO BID 07/31/15 [History] Potassium Chloride [Potassium Chloride 20MEQ/15ML] 20 meq PO TID 07/31/15 [History] Metformin HCl 500 mg [Glucophage 500 MG] 500 mg PO BIDWM 03/02/18 [History] Omeprazole 40 mg PO DAILY 03/02/18 [History] Albuterol Sulfate [Ventolin Hfa] 2 puffs PO QID 02/05/19 [History] Atorvastatin Calcium 40 mg PO DAILY 02/05/19 [History] Budesonide/Formoterol Fumarate [Symbicort 80-4.5 Mcg Inhaler] 2 puff PO DAILY 02/05/19 [History] Fluticasone Propionate [Flonase NASAL] 1 spray .ROUTE DAILY 02/05/19 [History] Amlodipine Besylate [Norvasc] 2.5 mg PO DAILY 10/08/21 [History] Insulin Detemir [Levemir] 30 unit SQ BID 10/08/21 [History] Ketoconazole Cream [Nizoral CREAM] 0 gm TOP BID 10/09/21 [History] Permethrin Cream [Elimite CREAM] 0 gm TP DAILY 10/09/21 [History] Hx Tetanus, Diphtheria Vaccination/Date Given: Yes Hx Influenza Vaccination/Date Given: Yes Hx Pneumococcal Vaccination/Date Given: Yes Travel Risk - International Travel Have you traveled outside of the country in past 3 weeks: No - Coronavirus Screening Are you exhibiting any of the following symptoms?: No Symptoms: Shortness of Breath - Vaccine Status Have you recieved a Covid-19 vaccination: Yes [employer]: Moderna - Vaccination Dates Date of 2cond Vaccination (if applicable): unknown - Review of Systems Constitutional: No Symptoms, No Fever, No Chills Eyes: No Symptoms Ears, Nose, & Throat: No Symptoms Respiratory: No Symptoms, No Cough, No Dyspnea Cardiac: No Symptoms, No Chest Pain, No Edema, No Syncope Abdominal/Gastrointestinal: No Symptoms, No Abdominal Pain, No Nausea, No Vomiting, No Diarrhea Genitourinary Symptoms: No Symptoms, No Dysuria Musculoskeletal: No Symptoms, No Back Pain, No Neck Pain Skin: No Symptoms, No Rash Neurological: No Symptoms, No Dizziness, No Focal Weakness, No Sensory Changes Psychological: No Symptoms Endocrine: No Symptoms Hematologic/Lymphatic: No Symptoms Immunological/Allergic: No Symptoms All Other Systems: Reviewed and Negative - Past Medical History Pertinent Past Medical History: Yes Neurological History: No Pertinent History ENT History: No Pertinent History Cardiac History: Other Respiratory History: Asthma, Bronchitis, Pneumonia Endocrine Medical History: Diabetes Type II Musculoskeletal History: No Pertinent History GI Medical History: No Pertinent History History: No Pertinent History Psycho-Social History: Anxiety, Depression Female Reproductive Disorders: Cervical Cancer Other Medical History: 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 heart, and leaky valve per pt - Past Surgical History Past Surgical History: Yes Neuro Surgical History: No Pertinent History Cardiac: No Pertinent History Respiratory: No Pertinent History Gastrointestinal: Appendectomy Genitourinary: No Pertinent History Musculoskeletal: No Pertinent History Female Surgical History: Hysterectomy, Dilation & Curettage, Tubal Ligation Other Surgical History: D&C - Social History Smoking Status: Former smoker Exposure to second hand smoke: No Drug Use: none Patient Lives Alone: No - Nursing Vital Signs Nursing Vital Signs: Initial Vital Signs Temperature 98.9 F 10/08/21 21:51 Pulse Rate 102 H 10/08/21 21:51 Respiratory Rate 26 H 10/08/21 21:51 Blood Pressure 144/80 10/08/21 21:51 O2 Sat by Pulse Oximetry 97 10/08/21 21:51 Pain Scale Pain Intensity 7 - Physical Exam General Appearance: no apparent distress, alert Eye Exam: PERRL/EOMI, eyes nml inspection Ears, Nose, Throat Exam: normal ENT inspection, TMs normal, pharynx normal, moist mucous membranes Neck Exam: normal inspection, non-tender, supple, full range of motion Respiratory Exam: normal breath sounds, lungs clear, airway intact, No chest tenderness, No respiratory distress Cardiovascular Exam: regular rate/rhythm, normal heart sounds, normal peripheral pulses Gastrointestinal/Abdomen Exam: soft, normal bowel sounds, No tenderness, No mass Back Exam: normal inspection, normal range of motion, No CVA tenderness, No vertebral tenderness Extremity Exam: normal inspection, normal range of motion, pelvis stable Neurologic Exam: alert, oriented x 3, cooperative, normal mood/affect, nml cerebellar function, nml station & gait, sensation nml, No motor deficits Skin Exam: normal color, warm, dry, other (Left posterior lateral chest wall presents with a 10 cm x 12 cm area of cellulitis and indurated skin. No fluctuance. There is a papular lesion at the center of the cellulitis.), No rash Lymphatic Exam: No adenopathy SpO2 Interpretation: normal SpO2: 97 O2 Delivery: Room Air - Course Nursing assessment & vital signs reviewed: Yes Ordered Tests: Active Orders 24 hr Category Date Time Status Pump Rebuilder STAT Care 10/08/21 22:11 Active IV Insertion STAT Care 10/08/21 22:10 Active Pulse Oximetry (ED) STAT Care 10/08/21 22:10 Active BLOOD CULTURE Stat Lab 10/08/21 22:50 Received CBC W DIFF Stat Lab 10/08/21 22:45 Completed CMP Stat Lab 10/08/21 22:45 Completed Lactic Acid Stat Lab 10/08/21 22:10 Ordered UA W/RFX CULTURE Stat Lab 10/08/21 22:54 Completed Transfer Order Routine Transfer 10/09/21 Ordered Medication Summary Generic Name Dose Route Start Last Admin Trade Name Freq PRN Reason Stop Dose Admin Sodium Chloride 1,000 mls @ 100 mls/hr 10/08/21 22:15 10/08/21 22:43 Sodium Chloride 0.9% 1000 Ml IV 11/07/21 22:14 100 mls/hr .Q10H ELBA Administration Discontinued Medications Generic Name Dose Route Start Last Admin Trade Name Freq PRN Reason Stop Dose Admin Vancomycin HCl 1 gm in 200 mls @ 125 mls/hr 10/08/21 22:15 10/09/21 00:17 Vancomycin 1 Gram/200 Ml Bag IV 10/08/21 23:50 125 mls/hr STAT ONE 125 mls/hr Administration Piperacillin Sod/Tazobactam 100 mls @ 200 mls/hr 10/08/21 22:15 10/08/21 22:43 Sod 3.375 gm/ Sodium Chloride IV 10/08/21 22:44 200 mls/hr STAT ONE Administration Sodium Chloride Confirm 10/08/21 22:40 Sodium Chloride 100ml Mini-Bag Plus Administered 10/08/21 22:41 Dose 100 mls @ ud IV .STK-MED ONE Vancomycin HCl Confirm 10/09/21 00:15 Vancomycin 1 Gram/200 Ml Bag Administered 10/09/21 00:16 Dose 1 gm in 200 mls @ ud IV .STK-MED ONE Piperacillin Sod/Tazobactam Sod Confirm 10/08/21 22:39 Piperacillin/Tazobactam Sodium 3.375 Gm Vial Administered 10/08/21 22:40 Dose 3.375 gm IV .STK-MED ONE Lab/Rad Data: Laboratory Result Diagrams 10/08/21 22:45 10/08/21 22:45 Laboratory Results 10/08/21 10/08/21 10/08/21 Range/Units 22:54 22:45 22:45 WBC (4.0-10.5) x10^3/uL RBC (4.1-5.4) x10^6/uL Hgb (12.0-16.0) g/dL Hct (35-47) % MCV (78-100) fL MCH (26-32) pg MCHC (32-36) g/dL RDW (11.5-14.0) % Plt Count (150-450) x10^3/uL MPV (7.5-11.0) fL Gran % (36.0-66.0) % Immature Gran % (Auto) (0.00-0.4) % Nucleat RBC Rel Count (0.00-0.1) % Eos # (Auto) (0-0.5) x10^3/uL Immature Gran # (Auto) (0.00-0.03) x10^3u/L Absolute Lymphs (auto) (1.0-4.6) x10^3/uL Absolute Monos (auto) (0.0-1.3) x10^3/uL Absolute Nucleated RBC (0.00-0.01) x10^3u/L Lymphocytes % (24.0-44.0) % Monocytes % (0.0-12.0) % Eosinophils % (0.00-5.0) % Basophils % (0.0-0.4) % Absolute Granulocytes (1.4-6.9) x10^3/uL Basophils # (0-0.4) x10^3/uL Sodium 138 (137-145) mmol/L Potassium 4.2 (3.5-5.1) mmol/L Chloride 106 (98-107) mmol/L Carbon Dioxide 21 L (22-30) mmol/L Anion Gap 15.4 H (5-15) MEQ/L BUN 16 (7-17) mg/dL Creatinine 0.67 (0.52-1.04) mg/dL Estimated GFR > 60.0 ML/MIN Glucose 231 H (74-106) mg/dL Calcium 9.8 (8.4-10.2) mg/dL Total Bilirubin 0.60 (0.2-1.3) mg/dL AST 17 (14-36) U/L ALT 11 (0-35) U/L Alkaline Phosphatase 71 (38-126) U/L Serum Total Protein 6.7 (6.3-8.2) g/dL Albumin 3.8 (3.5-5.0) g/dL Urinalys Dipstick Clnc MAIN LAB Urine Color YELLOW (YELLOW) Urine Appearance CLEAR (CLEAR) Urine pH 5.5 (5-6) Ur Specific [place] 1.020 (1.005-1.025) POC Urine Protein Conf NEGATIVE (Negative) Urine Ketones NEGATIVE (NEGATIVE) Urine Nitrite NEGATIVE (NEGATIVE) Urine Bilirubin NEGATIVE (NEGATIVE) Urine Urobilinogen 0.2 (0-1) mg/dL Urine Leukocytes NEGATIVE (NEGATIVE) Urine WBC (Auto) 0-2 (0-5) /HPF Urine RBC (Auto) NONE (0-2) /HPF U Hyaline Cast (Auto) 0-2 (0-2) /LPF U Epithel Cells (Auto) NONE (FEW) /HPF Urine Bacteria (Auto) NONE (NEGATIVE) /HPF Urine RBC NEGATIVE (0-5) Oliver/ul Urine Mucus (Auto) SLIGHT (NEGATIVE) /HPF Ur Culture Indicated? NO Urine Glucose NEGATIVE (NEGATIVE) mg/dL Influenza Type A Ag NEGATIVE (NEGATIVE) Influenza Type B Ag NEGATIVE (NEGATIVE) RSV (PCR) NEGATIVE (Negative) SARS-CoV-2 (PCR) NEGATIVE (NEGATIVE) 10/08/21 Range/Units 22:45 WBC 13.6 H (4.0-10.5) x10^3/uL RBC 4.02 L (4.1-5.4) x10^6/uL Hgb 10.8 L (12.0-16.0) g/dL Hct 36.1 (35-47) % MCV 89.8 (78-100) fL MCH 26.9 (26-32) pg MCHC 29.9 L (32-36) g/dL RDW 14.7 H (11.5-14.0) % Plt Count 287 (150-450) x10^3/uL MPV 11.0 (7.5-11.0) fL Gran % 78.4 H (36.0-66.0) % Immature Gran % (Auto) 0.4 (0.00-0.4) % Nucleat RBC Rel Count 0.0 (0.00-0.1) % Eos # (Auto) 0.07 (0-0.5) x10^3/uL Immature Gran # (Auto) 0.05 H (0.00-0.03) x10^3u/L Absolute Lymphs (auto) 1.66 (1.0-4.6) x10^3/uL Absolute Monos (auto) 1.13 (0.0-1.3) x10^3/uL Absolute Nucleated RBC 0.00 (0.00-0.01) x10^3u/L Lymphocytes % 12.2 L (24.0-44.0) % Monocytes % 8.3 (0.0-12.0) % Eosinophils % 0.5 (0.00-5.0) % Basophils % 0.2 (0.0-0.4) % Absolute Granulocytes 10.68 H (1.4-6.9) x10^3/uL Basophils # 0.03 (0-0.4) x10^3/uL Sodium (137-145) mmol/L Potassium (3.5-5.1) mmol/L Chloride (98-107) mmol/L Carbon Dioxide (22-30) mmol/L Anion Gap (5-15) MEQ/L BUN (7-17) mg/dL Creatinine (0.52-1.04) mg/dL Estimated GFR ML/MIN Glucose (74-106) mg/dL Calcium (8.4-10.2) mg/dL Total Bilirubin (0.2-1.3) mg/dL AST (14-36) U/L ALT (0-35) U/L Alkaline Phosphatase (38-126) U/L Serum Total Protein (6.3-8.2) g/dL Albumin (3.5-5.0) g/dL Urinalys Dipstick Clnc Urine Color (YELLOW) Urine Appearance (CLEAR) Urine pH (5-6) Ur Specific [place] (1.005-1.025) POC Urine Protein Conf (Negative) Urine Ketones (NEGATIVE) Urine Nitrite (NEGATIVE) Urine Bilirubin (NEGATIVE) Urine Urobilinogen (0-1) mg/dL Urine Leukocytes (NEGATIVE) Urine WBC (Auto) (0-5) /HPF Urine RBC (Auto) (0-2) /HPF U Hyaline Cast (Auto) (0-2) /LPF U Epithel Cells (Auto) (FEW) /HPF Urine Bacteria (Auto) (NEGATIVE) /HPF Urine RBC (0-5) Oliver/ul Urine Mucus (Auto) (NEGATIVE) /HPF Ur Culture Indicated? Urine Glucose (NEGATIVE) mg/dL Influenza Type A Ag (NEGATIVE) Influenza Type B Ag (NEGATIVE) RSV (PCR) (Negative) SARS-CoV-2 (PCR) (NEGATIVE) - Progress Progress: improved Progress Note: Patient reassessed. She continues to decline pain medication. Antibiotics infused. Work-up reveals a leukocytosis. Patient received vancomycin and Zosyn. Patient is diabetic. Case discussed with Dr. Connolly covering Dr. Smith who accepts admission to observation plan of care discussed with patient. She agrees to admission at [facility] for further evaluation and treatment. Portions of this note were created with voice recognition technology. There may be grammatical, spelling, punctuation or sound alike errors 10/09/21 00:41 Discussed with : Josse Will see patient in: hospital (observation) Counseled pt/family regarding: lab results, diagnosis, need for follow-up - Departure Departure Disposition: Observation Clinical Impression: Cellulitis, Leukocytosis Condition: Stable Critical Care Time: No Referrals: VON PARADA [Primary Care Provider] - Follow up/PCP as directed
[2021-10-08 23:04] LABS: Absolute Neutrophil Ct (ANC) 10.68 x10^3/uL (1.4-6.9); Basophil (Absolute #) 0.03 x10^3/uL (0-0.4); Eosinophil % 0.5 % (0.00-5.0); Eosinophil (Absolute #) 0.07 x10^3/uL (0-0.5); Hematocrit 36.1 % (35-47); Hemoglobin 10.8 g/dL (12.0-16.0); Lymphocyte (Absolute #) 1.66 x10^3/uL (1.0-4.6); Lymphocytes % 12.2 % (24.0-44.0); Mean Cell Volume 89.8 fL (78-100); Mean Corpuscular Hemoglobin 26.9 pg (26-32); Mean Corpuscular Hgb Concent. 29.9 g/dL (32-36); Monocyte (Absolute #) 1.13 x10^3/uL (0.0-1.3); Monocytes % 8.3 % (0.0-12.0); Neutrophil % 78.4 % (36.0-66.0); Platelet Count 287 x10^3/uL (150-450); Red Blood Count 4.02 x10^6/uL (4.1-5.4); Red Cell Distribution Width 14.7 % (11.5-14.0); White Blood Count 13.6 x10^3/uL (4.0-10.5)
[2021-10-08 23:20] LABS: Appearance CLEAR (CLEAR)
[2021-10-08 23:21] LABS: Bilirubin NEGATIVE (NEGATIVE); Dipstick done @ ? MAIN LAB; Glucose NEGATIVE (NEGATIVE); Ketones NEGATIVE (NEGATIVE); Nitrite NEGATIVE (NEGATIVE); Ph 5.5 (5-6); Protein,Urine Dip NEGATIVE (Negative); RBC NEGATIVE Ery/ul (0-5); Urobilinogen 0.2 mg/dL (0-1)
[2021-10-08 23:24] LABS: Hyaline Casts 0-2 /LPF (0-2); Mucus SLIGHT /HPF (NEGATIVE); Urine Cultured Indicated? NO; WBC 0-2 /HPF (0-5)
[2021-10-08 23:41] LABS: INFLUENZA A NEGATIVE (NEGATIVE); INFLUENZA B NEGATIVE (NEGATIVE); RESPIRATORY SYNCTIAL VIRUS NEGATIVE (Negative); SARS-CoV-2 Xpert Express NEGATIVE (NEGATIVE)
[2021-10-08 23:43] LABS: ALBUMIN 3.8 g/dL (3.5-5.0); ALKALINE PHOSPHATASE 71 U/L (38-126); ANION GAP 15.4 MEQ/L (5-15); BLOOD UREA NITROGEN 16 mg/dL (7-17); CHLORIDE 106 mmol/L (98-107); Calcium 9.8 mg/dL (8.4-10.2); Carbon Dioxide 21 mmol/L (22-30); Creatinine 1 0.67 mg/dL (0.52-1.04); EST GLOMERULAR FILTRATION RATE > 60.0 ML/MIN; Glucose 231 mg/dL (74-106); Potassium 4.2 mmol/L (3.5-5.1); SGOT/AST 17 U/L (14-36); SGPT/ALT 11 U/L (0-35); SODIUM 138 mmol/L (137-145); Total Protein 6.7 g/dL (6.3-8.2)
[2021-10-09] MEDS ORDERED: VANCOMYCIN 1 GRAM/200 ML BAG 1 GM/200 ML PIGGYBACK IV ONE (00:15)
[2021-10-09] MEDS ORDERED: MORPHINE SULFATE 2 MG INJ IV PRN (00:48)
[2021-10-09] MEDS ORDERED: Zofran 4 MG/2 ML VIAL IV PRN (00:48)
[2021-10-09] MEDS ORDERED: PIPERACILLIN/TAZOBACTAM IV ONE (04:34)
[2021-10-09] MEDS ORDERED: Sodium Chloride 100ML MINI-BAG PLUS 100 ML IV ONE (04:35)
[2021-10-09] MEDS: TYLENOL 325 MG PO PRN (04:40)
[2021-10-09] MEDS: PIPERACILLIN/TAZOBACTAM 3.375 GM in Sodium Chloride 100ML MINI-BAG PLUS 100 ML IV SCH ×3 (04:41→19:32)
[2021-10-09 05:18] LABS: Absolute Neutrophil Ct (ANC) 9.77 x10^3/uL (1.4-6.9); Basophil (Absolute #) 0.03 x10^3/uL (0-0.4); Eosinophil % 0.5 % (0.00-5.0); Eosinophil (Absolute #) 0.06 x10^3/uL (0-0.5); Hematocrit 32.1 % (35-47); Hemoglobin 9.8 g/dL (12.0-16.0); Lymphocyte (Absolute #) 2.13 x10^3/uL (1.0-4.6); Lymphocytes % 16.3 % (24.0-44.0); Mean Cell Volume 87.5 fL (78-100); Mean Corpuscular Hemoglobin 26.7 pg (26-32); Mean Corpuscular Hgb Concent. 30.5 g/dL (32-36); Mean Platelet Volume 10.6 fL (7.5-11.0); Monocyte (Absolute #) 1.03 x10^3/uL (0.0-1.3); Monocytes % 7.9 % (0.0-12.0); Neutrophil % 74.7 % (36.0-66.0); Platelet Count 264 x10^3/uL (150-450); Red Blood Count 3.67 x10^6/uL (4.1-5.4); Red Cell Distribution Width 14.7 % (11.5-14.0); White Blood Count 13.1 x10^3/uL (4.0-10.5)
[2021-10-09 05:45] LABS: ALBUMIN 3.3 g/dL (3.5-5.0); ALKALINE PHOSPHATASE 63 U/L (38-126); ANION GAP 12.8 MEQ/L (5-15); BLOOD UREA NITROGEN 14 mg/dL (7-17); CHLORIDE 106 mmol/L (98-107); Calcium 8.9 mg/dL (8.4-10.2); Carbon Dioxide 20 mmol/L (22-30); Creatinine 1 0.67 mg/dL (0.52-1.04); EST GLOMERULAR FILTRATION RATE > 60.0 ML/MIN; Glucose 183 mg/dL (74-106); Potassium 4.1 mmol/L (3.5-5.1); SGOT/AST 17 U/L (14-36); SGPT/ALT 8 U/L (0-35); SODIUM 136 mmol/L (137-145); Total Protein 6.5 g/dL (6.3-8.2)
--- NOTE | 2021-10-09 08:46 | PCM.HP ---
History of Present Illness - Chief Complaint Chief Complaint: Cellulitis History of Present Illness: is a 65 year old female who presented to the ER with increased redness, pain and swelling of left posterior chest wall. she is an obese diabetic and states she has bedbugs in her home, having a very hard time eradicating them. has had bites and states she has been battling cellulitis on her left chest wall for the last several weeks. - Review of Systems Constitutional: No Fever, No Chills Respiratory: No Cough, No Short Of Breath Cardiac: No Chest Pain, No Edema, No Syncope Abdominal/Gastrointestinal: No Abdominal Pain, No Nausea, No Vomiting, No Diarrhea Skin: Cellulitis Medications & Allergies Home Medications: Home Medication List Colesevelam HCl 625 mg [Welchol 625 mg] 1,875 mg PO BID 07/15/15 [History Confirmed 10/09/21] Furosemide 40 mg [Lasix 40 MG] 80 mg PO DAILY 07/15/15 [History Confirmed 10/09/21] Insulin Aspart [Novolog Flexpen] 15 unit SQ AC 07/15/15 [History Confirmed 10/09/21] Levothyroxine Sodium 25 Mcg [Synthroid 25 Mcg] 25 mcg PO DAILY 07/15/15 [History Confirmed 10/09/21] Liraglutide [Victoza 2-Rah] 1.8 mg SQ BID 07/15/15 [History Confirmed 10/09/21] Lisinopril 10 mg [Zestril 10 MG] 20 mg PO DAILY 07/15/15 [History Confirmed 10/09/21] Sitagliptin Phos/Metformin HCl [Janumet 50-500 mg Tablet] 1 tablet PO BID 07/15/15 [History Confirmed 10/09/21] Venlafaxine HCl ER 75 mg [Effexor XR 75 MG] 75 mg PO DAILY 07/15/15 [History Confirmed 10/09/21] Carvedilol 3.125 mg [Coreg 3.125 MG] 12.5 mg PO BID 07/31/15 [History Confirmed 10/09/21] Potassium Chloride [Potassium Chloride 20MEQ/15ML] 20 meq PO TID 07/31/15 [History Confirmed 10/09/21] Metformin HCl 500 mg [Glucophage 500 MG] 500 mg PO BIDWM 03/02/18 [History Confirmed 10/09/21] Omeprazole 40 mg PO DAILY 03/02/18 [History Confirmed 10/09/21] Albuterol Sulfate [Ventolin Hfa] 2 puffs PO QID 02/05/19 [History Confirmed 10/09/21] Atorvastatin Calcium 40 mg PO DAILY 02/05/19 [History Confirmed 10/09/21] Budesonide/Formoterol Fumarate [Symbicort 80-4.5 Mcg Inhaler] 2 puff PO DAILY 02/05/19 [History Confirmed 10/09/21] Fluticasone Propionate [Flonase NASAL] 1 spray .ROUTE DAILY 02/05/19 [History Confirmed 10/09/21] Albuterol Sulfate [Proair Hfa] 8.5 gm IH Q4H PRN PRN #1 [id number] 03/18/19 [Rx Confirmed 10/09/21] Amlodipine Besylate [Norvasc] 2.5 mg PO DAILY 10/08/21 [History Confirmed 10/09/21] Insulin Detemir [Levemir] 30 unit SQ BID 10/08/21 [History Confirmed 10/09/21] Ketoconazole Cream [Nizoral CREAM] 0 gm TOP BID 10/09/21 [History Confirmed 10/09/21] Permethrin Cream [Elimite CREAM] 0 gm TP DAILY 10/09/21 [History Confirmed 10/09/21] Allergies/Adverse Reactions: Allergies Allergy/AdvReac Type Severity Reaction Status Date / Time Sulfa (Sulfonamide Allergy Verified 10/08/21 21:51 Antibiotics) - Past Medical History Past Medical History: Yes Neurological History: No Pertinent History ENT History: No Pertinent History Cardiac History: Other Respiratory History: Asthma, Bronchitis, Pneumonia Endocrine Medical History: Diabetes Type II Musculoskelatal History: No Pertinent History GI Medical History: No Pertinent History History: No Pertinent History Pyscho-Social History: Anxiety, Depression Reproductive Disorders: Cervical Cancer Comment: 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 heart, and leaky valve per pt - Female History Are you now?: No - Past Surgical History Past Surgical History: Yes Neuro Surgical History: No Pertinent History Cardiac History: No Pertinent History Respiratory Surgery: No Pertinent History GI Surgical History: Appendectomy Genitourinary Surgical Hx: No Pertinent History Musculskeletal Surgical Hx: No Pertinent History Female Surgical History: Dilation & Curettage, Tubal Ligation Other Surgical History: D&C - Social History Smoking Status: Former smoker Exposure to second hand smoke: No Alcohol: None Drug Use: none - Physical Exam Vital Signs: Vital Signs - 24 hr Temp Pulse Resp BP Pulse Ox 10/09/21 04:10 101.7 F 111 H 22 118/76 94 L 10/09/21 01:05 98.2 F 118 H 24 147/64 95 10/09/21 00:48 95 10/09/21 00:46 115 H 18 115/55 96 10/09/21 00:43 97 10/08/21 23:50 118 H 18 152/81 94 L 10/08/21 22:44 97 10/08/21 22:31 118 H 153/68 95 10/08/21 21:51 98.9 F 102 H 26 H 144/80 97 General Appearance: no apparent distress, obese Neurologic Exam: alert, oriented x 3 Respiratory Exam: normal breath sounds, lungs clear, No respiratory distress Cardiovascular Exam: regular rate/rhythm, normal heart sounds, normal peripheral pulses Gastrointestinal/Abdomen Exam: soft, normal bowel sounds, No tenderness, No mass Skin Exam: other (large indurated, red and warm area on left posterolateral chest wall. tender to palpation, no active drainage) Wound Assessment: Skin/Wound Assessment Wound/Incision Assessment Start: 10/09/21 00:48 Text: Status: Active Freq: Q6H Protocol: Document 10/09/21 02:00 KX (Rec: 10/09/21 02:35 KX [id number]) Wound/Incision Assessment Left Lateral Chest Wound Type abscess Dressing Status Dry & Intact Drainage Amount None Drainage Odor None/Absent General Appearance Reddened Length (cm) (cm) 10 Width (cm) (cm) 12 Results - Labs Lab/Micro Results: Lab Results-Last 24 Hours 10/08/21 10/08/21 10/08/21 Range/Units 22:45 22:45 22:45 WBC 13.6 H (4.0-10.5) x10^3/uL RBC 4.02 L (4.1-5.4) x10^6/uL Hgb 10.8 L (12.0-16.0) g/dL Hct 36.1 (35-47) % MCV 89.8 (78-100) fL MCH 26.9 (26-32) pg MCHC 29.9 L (32-36) g/dL RDW 14.7 H (11.5-14.0) % Plt Count 287 (150-450) x10^3/uL MPV 11.0 (7.5-11.0) fL Gran % 78.4 H (36.0-66.0) % Immature Gran % (Auto) 0.4 (0.00-0.4) % Nucleat RBC Rel Count 0.0 (0.00-0.1) % Eos # (Auto) 0.07 (0-0.5) x10^3/uL Immature Gran # (Auto) 0.05 H (0.00-0.03) x10^3u/L Absolute Lymphs (auto) 1.66 (1.0-4.6) x10^3/uL Absolute Monos (auto) 1.13 (0.0-1.3) x10^3/uL Absolute Nucleated RBC 0.00 (0.00-0.01) x10^3u/L Lymphocytes % 12.2 L (24.0-44.0) % Monocytes % 8.3 (0.0-12.0) % Eosinophils % 0.5 (0.00-5.0) % Basophils % 0.2 (0.0-0.4) % Absolute Granulocytes 10.68 H (1.4-6.9) x10^3/uL Basophils # 0.03 (0-0.4) x10^3/uL Sodium 138 (137-145) mmol/L Potassium 4.2 (3.5-5.1) mmol/L Chloride 106 (98-107) mmol/L Carbon Dioxide 21 L (22-30) mmol/L Anion Gap 15.4 H (5-15) MEQ/L BUN 16 (7-17) mg/dL Creatinine 0.67 (0.52-1.04) mg/dL Estimated GFR > 60.0 ML/MIN Glucose 231 H (74-106) mg/dL POC Glucometer (74 to 106) mg/dL Lactic Acid (0.4-2.0) Calcium 9.8 (8.4-10.2) mg/dL Total Bilirubin 0.60 (0.2-1.3) mg/dL AST 17 (14-36) U/L ALT 11 (0-35) U/L Alkaline Phosphatase 71 (38-126) U/L Serum Total Protein 6.7 (6.3-8.2) g/dL Albumin 3.8 (3.5-5.0) g/dL Urinalys Dipstick Clnc Urine Color (YELLOW) Urine Appearance (CLEAR) Urine pH (5-6) Ur Specific [place] (1.005-1.025) POC Urine Protein Conf (Negative) Urine Ketones (NEGATIVE) Urine Nitrite (NEGATIVE) Urine Bilirubin (NEGATIVE) Urine Urobilinogen (0-1) mg/dL Urine Leukocytes (NEGATIVE) Urine WBC (Auto) (0-5) /HPF Urine RBC (Auto) (0-2) /HPF U Hyaline Cast (Auto) (0-2) /LPF U Epithel Cells (Auto) (FEW) /HPF Urine Bacteria (Auto) (NEGATIVE) /HPF Urine RBC (0-5) Oliver/ul Urine Mucus (Auto) (NEGATIVE) /HPF Ur Culture Indicated? Urine Glucose (NEGATIVE) mg/dL Influenza Type A Ag NEGATIVE (NEGATIVE) Influenza Type B Ag NEGATIVE (NEGATIVE) RSV (PCR) NEGATIVE (Negative) SARS-CoV-2 (PCR) NEGATIVE (NEGATIVE) 10/08/21 10/09/21 10/09/21 Range/Units 22:54 01:02 05:00 WBC 13.1 H (4.0-10.5) x10^3/uL RBC 3.67 L (4.1-5.4) x10^6/uL Hgb 9.8 L (12.0-16.0) g/dL Hct 32.1 L (35-47) % MCV 87.5 (78-100) fL MCH 26.7 (26-32) pg MCHC 30.5 L (32-36) g/dL RDW 14.7 H (11.5-14.0) % Plt Count 264 (150-450) x10^3/uL MPV 10.6 (7.5-11.0) fL Gran % 74.7 H (36.0-66.0) % Immature Gran % (Auto) 0.4 (0.00-0.4) % Nucleat RBC Rel Count 0.0 (0.00-0.1) % Eos # (Auto) 0.06 (0-0.5) x10^3/uL Immature Gran # (Auto) 0.05 H (0.00-0.03) x10^3u/L Absolute Lymphs (auto) 2.13 (1.0-4.6) x10^3/uL Absolute Monos (auto) 1.03 (0.0-1.3) x10^3/uL Absolute Nucleated RBC 0.00 (0.00-0.01) x10^3u/L Lymphocytes % 16.3 L (24.0-44.0) % Monocytes % 7.9 (0.0-12.0) % Eosinophils % 0.5 (0.00-5.0) % Basophils % 0.2 (0.0-0.4) % Absolute Granulocytes 9.77 H (1.4-6.9) x10^3/uL Basophils # 0.03 (0-0.4) x10^3/uL Sodium (137-145) mmol/L Potassium (3.5-5.1) mmol/L Chloride (98-107) mmol/L Carbon Dioxide (22-30) mmol/L Anion Gap (5-15) MEQ/L BUN (7-17) mg/dL Creatinine (0.52-1.04) mg/dL Estimated GFR ML/MIN Glucose (74-106) mg/dL POC Glucometer (74 to 106) mg/dL Lactic Acid 2.2 H (0.4-2.0) Calcium (8.4-10.2) mg/dL Total Bilirubin (0.2-1.3) mg/dL AST (14-36) U/L ALT (0-35) U/L Alkaline Phosphatase (38-126) U/L Serum Total Protein (6.3-8.2) g/dL Albumin (3.5-5.0) g/dL Urinalys Dipstick Clnc MAIN LAB Urine Color YELLOW (YELLOW) Urine Appearance CLEAR (CLEAR) Urine pH 5.5 (5-6) Ur Specific [place] 1.020 (1.005-1.025) POC Urine Protein Conf NEGATIVE (Negative) Urine Ketones NEGATIVE (NEGATIVE) Urine Nitrite NEGATIVE (NEGATIVE) Urine Bilirubin NEGATIVE (NEGATIVE) Urine Urobilinogen 0.2 (0-1) mg/dL Urine Leukocytes NEGATIVE (NEGATIVE) Urine WBC (Auto) 0-2 (0-5) /HPF Urine RBC (Auto) NONE (0-2) /HPF U Hyaline Cast (Auto) 0-2 (0-2) /LPF U Epithel Cells (Auto) NONE (FEW) /HPF Urine Bacteria (Auto) NONE (NEGATIVE) /HPF Urine RBC NEGATIVE (0-5) Oliver/ul Urine Mucus (Auto) SLIGHT (NEGATIVE) /HPF Ur Culture Indicated? NO Urine Glucose NEGATIVE (NEGATIVE) mg/dL Influenza Type A Ag (NEGATIVE) Influenza Type B Ag (NEGATIVE) RSV (PCR) (Negative) SARS-CoV-2 (PCR) (NEGATIVE) 10/09/21 10/09/21 Range/Units 05:00 07:24 WBC (4.0-10.5) x10^3/uL RBC (4.1-5.4) x10^6/uL Hgb (12.0-16.0) g/dL Hct (35-47) % MCV (78-100) fL MCH (26-32) pg MCHC (32-36) g/dL RDW (11.5-14.0) % Plt Count (150-450) x10^3/uL MPV (7.5-11.0) fL Gran % (36.0-66.0) % Immature Gran % (Auto) (0.00-0.4) % Nucleat RBC Rel Count (0.00-0.1) % Eos # (Auto) (0-0.5) x10^3/uL Immature Gran # (Auto) (0.00-0.03) x10^3u/L Absolute Lymphs (auto) (1.0-4.6) x10^3/uL Absolute Monos (auto) (0.0-1.3) x10^3/uL Absolute Nucleated RBC (0.00-0.01) x10^3u/L Lymphocytes % (24.0-44.0) % Monocytes % (0.0-12.0) % Eosinophils % (0.00-5.0) % Basophils % (0.0-0.4) % Absolute Granulocytes (1.4-6.9) x10^3/uL Basophils # (0-0.4) x10^3/uL Sodium 136 L (137-145) mmol/L Potassium 4.1 (3.5-5.1) mmol/L Chloride 106 (98-107) mmol/L Carbon Dioxide 20 L (22-30) mmol/L Anion Gap 12.8 (5-15) MEQ/L BUN 14 (7-17) mg/dL Creatinine 0.67 (0.52-1.04) mg/dL Estimated GFR > 60.0 ML/MIN Glucose 183 H (74-106) mg/dL POC Glucometer 177 H (74 to 106) mg/dL Lactic Acid (0.4-2.0) Calcium 8.9 (8.4-10.2) mg/dL Total Bilirubin 0.70 (0.2-1.3) mg/dL AST 17 (14-36) U/L ALT 8 (0-35) U/L Alkaline Phosphatase 63 (38-126) U/L Serum Total Protein 6.5 (6.3-8.2) g/dL Albumin 3.3 L (3.5-5.0) g/dL Urinalys Dipstick Clnc Urine Color (YELLOW) Urine Appearance (CLEAR) Urine pH (5-6) Ur Specific [place] (1.005-1.025) POC Urine Protein Conf (Negative) Urine Ketones (NEGATIVE) Urine Nitrite (NEGATIVE) Urine Bilirubin (NEGATIVE) Urine Urobilinogen (0-1) mg/dL Urine Leukocytes (NEGATIVE) Urine WBC (Auto) (0-5) /HPF Urine RBC (Auto) (0-2) /HPF U Hyaline Cast (Auto) (0-2) /LPF U Epithel Cells (Auto) (FEW) /HPF Urine Bacteria (Auto) (NEGATIVE) /HPF Urine RBC (0-5) Oliver/ul Urine Mucus (Auto) (NEGATIVE) /HPF Ur Culture Indicated? Urine Glucose (NEGATIVE) mg/dL Influenza Type A Ag (NEGATIVE) Influenza Type B Ag (NEGATIVE) RSV (PCR) (Negative) SARS-CoV-2 (PCR) (NEGATIVE) Accuchecks Date 10/09/21 Time 07:25 - Radiology Impressions Radiology Exams & Impressions: Radiology Procedures Category Date Time Status CHEST ULTRASOUND [US] Stat Exams 10/09/21 Ordered Assessment/Plan (1) Abscess or cellulitis of chest wall Current Visit: Yes Status: Acute Assessment & Plan: continue vanc and zosyn, ordered target ultrasound. will consult general surgery, suspect abscess and will likely require incision and drainage of soft tissue abscess Code(s): [id number] - (2) Morbid obesity Current Visit: Yes Status: Acute Code(s): E66.01 - MORBID (SEVERE) OBESITY DUE TO EXCESS CALORIES (3) Diabetes Current Visit: No Status: Acute Code(s): E11.9 - TYPE 2 DIABETES MELLITUS WITHOUT COMPLICATIONS
[2021-10-09] MEDS ORDERED: VENTOLIN COMMON CANISTER IH PRN (09:48)
[2021-10-09] MEDS ORDERED: NON-FORMULARY ITEM (Venlafaxine Hcl 75 MG Cap) PO SCH (10:00)
[2021-10-09] MEDS ORDERED: Coreg 3.125 MG PO SCH (10:00)
[2021-10-09] MEDS ORDERED: ZOCOR 20MG PO SCH (10:00)
[2021-10-09] MEDS ORDERED: Lasix 40 MG PO SCH (10:00)
[2021-10-09] MEDS ORDERED: NON-FORMULARY ITEM (Insulin Detemir [Levemir] 100 UNIT/ML Vial) SQ SCH (10:00)
[2021-10-09] MEDS ORDERED: OMEPRAZOLE PO SCH (10:00)
[2021-10-09] MEDS ORDERED: EFFEXOR 37.5 MG PO SCH (10:00)
[2021-10-09] MEDS ORDERED: NON-FORMULARY ITEM (Amlodipine Besylate [Norvasc] 2.5 MG Tablet) PO SCH (10:00)
[2021-10-09] MEDS ORDERED: POTASSIUM CHLORIDE 20 MEQ/15 ML PO SCH (10:00)
[2021-10-09] MEDS ORDERED: LIPITOR 40MG PO SCH (10:00)
[2021-10-09] MEDS ORDERED: MEDICATION INTERVENTION MC SCH (10:15)
[2021-10-09] MEDS: Sodium Chloride 0.9% 1000 ML 1,000 ML IV SCH (11:30)
[2021-10-09] MEDS ORDERED: VANCOMYCIN 1 GRAM/200 ML BAG 1 GM/200 ML PIGGYBACK IV SCH ×2 (12:00→14:00)
[2021-10-09] MEDS: Lantus Insulin SQ SCH ×2 (12:20→21:57)
[2021-10-09] MEDS: COREG 12.5 MG PO SCH ×2 (12:28→21:48)
[2021-10-09] MEDS: Protonix 40MG Tablet PO SCH (12:33)
[2021-10-09] MEDS: Zestril 10 MG PO SCH (12:33)
[2021-10-09] MEDS: SYNTHROID 25 MCG PO SCH (12:33)
[2021-10-09] MEDS: Lasix 40 MG PO SCH (12:33)
[2021-10-09] MEDS: Klor Con PO SCH ×3 (12:33→21:48)
[2021-10-09] MEDS: Effexor XR 75 MG PO SCH (12:33)
[2021-10-09] MEDS: NORVASC 5 MG PO SCH (12:33)
[2021-10-09] MEDS: ZOCOR 20MG PO SCH (12:34)
--- NOTE | 2021-10-09 12:37 | XRAY ---
Indication: Abscess. Targeted soft tissue ultrasound left lateral chest demonstrates mild subcutaneous soft tissue swelling/edema. No focal solid/cystic soft tissue mass or abnormal fluid collection.
[2021-10-09] MEDS ORDERED: PATIENT OWN MEDICATION IH PRN (14:17)
[2021-10-09] MEDS: PATIENT OWN MEDICATION IH SCH ×2 (14:50→19:40)
[2021-10-09] MEDS ORDERED: VENTOLIN COMMON CANISTER IH SCH (15:00)
[2021-10-09] MEDS: VANCOMYCIN 1 GRAM/200 ML BAG 1 GM/200 ML PIGGYBACK IV SCH (22:13)
[2021-10-10] MEDS: PIPERACILLIN/TAZOBACTAM 3.375 GM in Sodium Chloride 100ML MINI-BAG PLUS 100 ML IV SCH ×5 (00:18→23:57)
[2021-10-10] MEDS: Sodium Chloride 0.9% 1000 ML 1,000 ML IV SCH ×2 (02:13→15:43)
[2021-10-10 06:03] LABS: Absolute Neutrophil Ct (ANC) 7.28 x10^3/uL (1.4-6.9); Basophil (Absolute #) 0.02 x10^3/uL (0-0.4); Eosinophil % 2.8 % (0.00-5.0); Hematocrit 32.2 % (35-47); Hemoglobin 9.6 g/dL (12.0-16.0); Lymphocyte (Absolute #) 2.15 x10^3/uL (1.0-4.6); Lymphocytes % 20.3 % (24.0-44.0); Mean Cell Volume 89.4 fL (78-100); Mean Corpuscular Hemoglobin 26.7 pg (26-32); Mean Corpuscular Hgb Concent. 29.8 g/dL (32-36); Mean Platelet Volume 10.7 fL (7.5-11.0); Monocyte (Absolute #) 0.77 x10^3/uL (0.0-1.3); Monocytes % 7.3 % (0.0-12.0); Neutrophil % 68.9 % (36.0-66.0); Platelet Count 258 x10^3/uL (150-450); Red Cell Distribution Width 14.7 % (11.5-14.0); White Blood Count 10.6 x10^3/uL (4.0-10.5)
[2021-10-10 06:22] LABS: ALBUMIN 3.3 g/dL (3.5-5.0); ALKALINE PHOSPHATASE 67 U/L (38-126); ANION GAP 14.1 MEQ/L (5-15); BLOOD UREA NITROGEN 12 mg/dL (7-17); CHLORIDE 107 mmol/L (98-107); Calcium 8.1 mg/dL (8.4-10.2); Carbon Dioxide 19 mmol/L (22-30); Creatinine 1 0.61 mg/dL (0.52-1.04); EST GLOMERULAR FILTRATION RATE > 60.0 ML/MIN; Glucose 175 mg/dL (74-106); Potassium 3.7 mmol/L (3.5-5.1); SGOT/AST 18 U/L (14-36); SGPT/ALT 9 U/L (0-35); SODIUM 136 mmol/L (137-145); Total Protein 6.7 g/dL (6.3-8.2)
[2021-10-10] MEDS: PATIENT OWN MEDICATION IH SCH ×4 (07:19→18:50)
[2021-10-10] MEDS: Klor Con PO SCH ×3 (09:16→21:40)
[2021-10-10] MEDS: SYNTHROID 25 MCG PO SCH (09:16)
[2021-10-10] MEDS: Lasix 40 MG PO SCH (09:16)
[2021-10-10] MEDS: Effexor XR 75 MG PO SCH (09:16)
[2021-10-10] MEDS: Protonix 40MG Tablet PO SCH (09:16)
[2021-10-10] MEDS ORDERED: Reglan 10 MG/2 ML IV ONE (09:30)
[2021-10-10] MEDS ORDERED: Pepcid 20 MG VIAL IV ONE (09:30)
[2021-10-10] MEDS ORDERED: SUBLIMAZE 100 MCG/2 ML ONE ×2 (10:10→11:03)
[2021-10-10] MEDS ORDERED: Zofran 4 MG/2 ML VIAL ONE (10:10)
[2021-10-10] MEDS ORDERED: DIPRIVAN 200 MG/20 ML IV ONE (10:10)
[2021-10-10] MEDS ORDERED: Versed 2 MG/2 ML Injection ONE (10:10)
[2021-10-10] MEDS ORDERED: Xylocaine-Mpf 2% 5 Ml Vial ONE (10:10)
[2021-10-10] MEDS ORDERED: Quelicin Fliptop 200 MG/10 ML ONE (10:10)
[2021-10-10] MEDS ORDERED: Decadron 4 MG INJ ONE (10:10)
[2021-10-10] MEDS ORDERED: Pre-Attached Lta Kit TP ONE (10:17)
[2021-10-10] MEDS ORDERED: OFIRMEV 100 ML IV ONE (10:18)
[2021-10-10] MEDS ORDERED: DEXMEDETOMIDINE 80 MCG/20ML-NS IV ONE (10:33)
--- NOTE | 2021-10-10 10:58 | PCM.NOTE ---
Date and Time: 10/10/21 1056 Subjective Assessment: patient currently in surgery with Dr Arellano for incision and drainage of abscess, chart reviewed Objective Exam General Appearance: obese Skin Exam: other (indurate, red and firm area on left lateral chest wall) Wound Assessment: Skin/Wound Assessment Wound/Incision Assessment Start: 10/09/21 00:48 Text: Status: Active Freq: Q6H Protocol: Document 10/10/21 07:54 (Rec: 10/10/21 07:58 [id number]) Wound/Incision Assessment Left Lateral Chest Wound Assessment Shift Assessment Wound Type cellulitis/abscess Wound Stage Non Pressure Wound Drainage Amount None General Appearance Open to air,Reddened Comment redness outlined Respiratory Exam: normal breath sounds, lungs clear, No respiratory distress Cardiovascular Exam: regular rate/rhythm, normal heart sounds Gastrointestinal/Abdomen Exam: soft, No tenderness, No mass OBJECTIVE DATA Vital Signs: Vital Signs - 24 hr Temp Pulse Resp BP Pulse Ox 10/10/21 09:39 98.5 F 88 16 119/60 95 10/10/21 07:23 88 16 95 10/10/21 07:12 98.0 F 96 H 16 119/60 94 L 10/10/21 04:00 98.6 F 86 18 113/58 96 10/10/21 00:00 21 98 10/09/21 20:00 99.0 F 103 H 20 118/75 97 10/09/21 19:41 106 H 22 100 10/09/21 16:49 97.7 F 101 H 22 111/58 93 L 10/09/21 14:28 85 20 96 10/09/21 12:00 97.0 F 104 H 21 127/67 96 Pain Assessment - Last Documented Pain Intensity 0 Intake and Output: Intake & Output 10/07/21 10/08/21 10/09/21 10/10/21 11:59 11:59 11:59 11:59 Intake Total 1062 3268 Output Total 550 Balance 1062 2718 Weight 124.6 kg 124.6 kg Lab Results: Lab Results-Last 24 Hours 10/09/21 10/09/21 10/09/21 Range/Units 12:23 16:31 21:42 WBC (4.0-10.5) x10^3/uL RBC (4.1-5.4) x10^6/uL Hgb (12.0-16.0) g/dL Hct (35-47) % MCV (78-100) fL MCH (26-32) pg MCHC (32-36) g/dL RDW (11.5-14.0) % Plt Count (150-450) x10^3/uL MPV (7.5-11.0) fL Gran % (36.0-66.0) % Immature Gran % (Auto) (0.00-0.4) % Nucleat RBC Rel Count (0.00-0.1) % Eos # (Auto) (0-0.5) x10^3/uL Immature Gran # (Auto) (0.00-0.03) x10^3u/L Absolute Lymphs (auto) (1.0-4.6) x10^3/uL Absolute Monos (auto) (0.0-1.3) x10^3/uL Absolute Nucleated RBC (0.00-0.01) x10^3u/L Lymphocytes % (24.0-44.0) % Monocytes % (0.0-12.0) % Eosinophils % (0.00-5.0) % Basophils % (0.0-0.4) % Absolute Granulocytes (1.4-6.9) x10^3/uL Basophils # (0-0.4) x10^3/uL Sodium (137-145) mmol/L Potassium (3.5-5.1) mmol/L Chloride (98-107) mmol/L Carbon Dioxide (22-30) mmol/L Anion Gap (5-15) MEQ/L BUN (7-17) mg/dL Creatinine (0.52-1.04) mg/dL Estimated GFR ML/MIN Glucose (74-106) mg/dL POC Glucometer 221 H 184 H 256 H (74 to 106) mg/dL Calcium (8.4-10.2) mg/dL Total Bilirubin (0.2-1.3) mg/dL AST (14-36) U/L ALT (0-35) U/L Alkaline Phosphatase (38-126) U/L Serum Total Protein (6.3-8.2) g/dL Albumin (3.5-5.0) g/dL 10/10/21 10/10/2110/10/22 Range/Units 05:58 05:58 07:28 WBC 10.6 H (4.0-10.5) x10^3/uL RBC 3.60 L (4.1-5.4) x10^6/uL Hgb 9.6 L (12.0-16.0) g/dL Hct 32.2 L (35-47) % MCV 89.4 (78-100) fL MCH 26.7 (26-32) pg MCHC 29.8 L (32-36) g/dL RDW 14.7 H (11.5-14.0) % Plt Count 258 (150-450) x10^3/uL MPV 10.7 (7.5-11.0) fL Gran % 68.9 H (36.0-66.0) % Immature Gran % (Auto) 0.5 H (0.00-0.4) % Nucleat RBC Rel Count 0.0 (0.00-0.1) % Eos # (Auto) 0.30 (0-0.5) x10^3/uL Immature Gran # (Auto) 0.05 H (0.00-0.03) x10^3u/L Absolute Lymphs (auto) 2.15 (1.0-4.6) x10^3/uL Absolute Monos (auto) 0.77 (0.0-1.3) x10^3/uL Absolute Nucleated RBC 0.00 (0.00-0.01) x10^3u/L Lymphocytes % 20.3 L (24.0-44.0) % Monocytes % 7.3 (0.0-12.0) % Eosinophils % 2.8 (0.00-5.0) % Basophils % 0.2 (0.0-0.4) % Absolute Granulocytes 7.28 H (1.4-6.9) x10^3/uL Basophils # 0.02 (0-0.4) x10^3/uL Sodium 136 L (137-145) mmol/L Potassium 3.7 (3.5-5.1) mmol/L Chloride 107 (98-107) mmol/L Carbon Dioxide 19 L (22-30) mmol/L Anion Gap 14.1 (5-15) MEQ/L BUN 12 (7-17) mg/dL Creatinine 0.61 (0.52-1.04) mg/dL Estimated GFR > 60.0 ML/MIN Glucose 175 H (74-106) mg/dL POC Glucometer 160 H (74 to 106) mg/dL Calcium 8.1 L (8.4-10.2) mg/dL Total Bilirubin 0.80 (0.2-1.3) mg/dL AST 18 (14-36) U/L ALT 9 (0-35) U/L Alkaline Phosphatase 67 (38-126) U/L Serum Total Protein 6.7 (6.3-8.2) g/dL Albumin 3.3 L (3.5-5.0) g/dL Radiology Exams: Radiology Procedures Category Date Time Status CHEST ULTRASOUND [US] Stat Exams 10/09/21 12:19 Completed Assessment/Plan (1) Abscess or cellulitis of chest wall Current Visit: Yes Status: Acute Assessment & Plan: continue vanc and zosyn currently, patient is afebrile and wbc trending down. hopefully will get culture results from incision and drainage in surgery Code(s): [id number] - (2) Morbid obesity Current Visit: Yes Status: Acute Code(s): E66.01 - MORBID (SEVERE) OBESITY DUE TO EXCESS CALORIES (3) Diabetes Current Visit: No Status: Acute Assessment & Plan: will resume long acting insulin after surgery today Code(s): E11.9 - TYPE 2 DIABETES MELLITUS WITHOUT COMPLICATIONS
[2021-10-10] MEDS ORDERED: PROVENTIL 2.5 MG/3 ML NEB IH ONE ×2 (11:29→11:44)
[2021-10-10] MEDS: VANCOMYCIN 1 GRAM/200 ML BAG 1 GM/200 ML PIGGYBACK IV SCH ×2 (12:25→21:43)
[2021-10-10] MEDS: ZOCOR 20MG PO SCH (12:25)
[2021-10-10] MEDS: COREG 12.5 MG PO SCH ×2 (12:28→21:40)
[2021-10-10] MEDS: Zestril 10 MG PO SCH (12:28)
[2021-10-10] MEDS: NORVASC 5 MG PO SCH (12:28)
[2021-10-10] MEDS: Lantus Insulin SQ SCH ×2 (12:33→21:41)
[2021-10-10] MEDS: HUMALOG SQ PRN ×2 (17:08→21:41)
[2021-10-10] MEDS: TYLENOL 325 MG PO PRN (21:40)
[2021-10-11] MEDS: Sodium Chloride 0.9% 1000 ML 1,000 ML IV SCH (04:03)
[2021-10-11] MEDS: PIPERACILLIN/TAZOBACTAM 3.375 GM in Sodium Chloride 100ML MINI-BAG PLUS 100 ML IV SCH ×3 (06:04→17:36)
[2021-10-11 06:17] LABS: Absolute Neutrophil Ct (ANC) 7.81 x10^3/uL (1.4-6.9); Basophil (Absolute #) 0.01 x10^3/uL (0-0.4); Eosinophil % 0.1 % (0.00-5.0); Eosinophil (Absolute #) 0.01 x10^3/uL (0-0.5); Hematocrit 30.5 % (35-47); Hemoglobin 9.2 g/dL (12.0-16.0); Lymphocyte (Absolute #) 1.12 x10^3/uL (1.0-4.6); Lymphocytes % 11.7 % (24.0-44.0); Mean Cell Volume 89.2 fL (78-100); Mean Corpuscular Hemoglobin 26.9 pg (26-32); Mean Corpuscular Hgb Concent. 30.2 g/dL (32-36); Mean Platelet Volume 10.9 fL (7.5-11.0); Monocyte (Absolute #) 0.61 x10^3/uL (0.0-1.3); Monocytes % 6.4 % (0.0-12.0); Neutrophil % 81.4 % (36.0-66.0); Platelet Count 274 x10^3/uL (150-450); Red Blood Count 3.42 x10^6/uL (4.1-5.4); Red Cell Distribution Width 14.6 % (11.5-14.0); White Blood Count 9.6 x10^3/uL (4.0-10.5)
[2021-10-11 06:42] LABS: ANION GAP 14.9 MEQ/L (5-15); BLOOD UREA NITROGEN 13 mg/dL (7-17); CHLORIDE 111 mmol/L (98-107); Calcium 8.2 mg/dL (8.4-10.2); Carbon Dioxide 18 mmol/L (22-30); Creatinine 1 0.59 mg/dL (0.52-1.04); EST GLOMERULAR FILTRATION RATE > 60.0 ML/MIN; Glucose 166 mg/dL (74-106); Potassium 4.2 mmol/L (3.5-5.1); SODIUM 139 mmol/L (137-145)
[2021-10-11] MEDS: PATIENT OWN MEDICATION IH SCH ×4 (07:50→19:36)
--- NOTE | 2021-10-11 08:13 | PCM.NOTE ---
Date and Time: 10/11/21 08 Subjective Assessment: patient reports significant improvement in her pain, was able to sleep well last night. overall improved Objective Exam General Appearance: no apparent distress, obese Neurologic Exam: alert, oriented x 3 Skin Exam: other (large amount of purulent/blood tinged drainage from left chest wall. induration improved) Wound Assessment: Skin/Wound Assessment Wound/Incision Assessment Start: 10/09/21 00:48 Text: Status: Active Freq: Q6H Protocol: Document 10/11/21 01:00 LB (Rec: 10/11/21 02:54 LB [id number]) Wound/Incision Assessment Left Lateral Chest Wound Assessment Shift Assessment Wound Type Incision Wound Stage Non Pressure Wound Dressing Status Dry & Intact Drainage Amount Minimal Drainage Odor None/Absent Respiratory Exam: normal breath sounds, lungs clear, No respiratory distress Cardiovascular Exam: regular rate/rhythm, normal heart sounds Gastrointestinal/Abdomen Exam: soft OBJECTIVE DATA Vital Signs: Vital Signs - 24 hr Temp Pulse Resp BP Pulse Ox 10/11/21 07:50 78 18 98 10/11/21 07:41 97.9 F 80 16 115/56 97 10/11/21 05:00 97.6 F 86 20 137/65 93 L 10/11/21 00:05 97.5 F 73 20 124/59 93 L 10/10/21 21:00 97.7 F 82 25 H 105/52 93 L 10/10/21 19:12 82 24 94 L 10/10/21 16:25 97.5 F 82 16 101/51 97 10/10/21 15:58 78 18 96 10/10/21 13:52 98.1 F 85 16 99/53 97 10/10/21 13:10 98.0 F 78 16 106/51 96 10/10/21 12:00 97.7 F 81 16 104/65 92 L 10/10/21 11:45 85 18 99 10/10/21 09:39 98.5 F 88 16 119/60 95 Pain Assessment - Last Documented Pain Intensity 0 Pain Scale Used 0-10 Pain Scale Intake and Output: Intake & Output 10/08/21 10/09/21 10/10/21 10/11/21 11:59 11:59 11:59 11:59 Intake Total 1062 4779 2121 Output Total 550 Balance 1062 3098 2121 Weight 124.6 kg 124.6 kg Lab Results: Lab Results-Last 24 Hours 10/10/21 10/10/21 10/10/21 Range/Units 12:16 16:19 20:52 WBC (4.0-10.5) x10^3/uL RBC (4.1-5.4) x10^6/uL Hgb (12.0-16.0) g/dL Hct (35-47) % MCV (78-100) fL MCH (26-32) pg MCHC (32-36) g/dL RDW (11.5-14.0) % Plt Count (150-450) x10^3/uL MPV (7.5-11.0) fL Gran % (36.0-66.0) % Immature Gran % (Auto) (0.00-0.4) % Nucleat RBC Rel Count (0.00-0.1) % Eos # (Auto) (0-0.5) x10^3/uL Immature Gran # (Auto) (0.00-0.03) x10^3u/L Absolute Lymphs (auto) (1.0-4.6) x10^3/uL Absolute Monos (auto) (0.0-1.3) x10^3/uL Absolute Nucleated RBC (0.00-0.01) x10^3u/L Lymphocytes % (24.0-44.0) % Monocytes % (0.0-12.0) % Eosinophils % (0.00-5.0) % Basophils % (0.0-0.4) % Absolute Granulocytes (1.4-6.9) x10^3/uL Basophils # (0-0.4) x10^3/uL Sodium (137-145) mmol/L Potassium (3.5-5.1) mmol/L Chloride (98-107) mmol/L Carbon Dioxide (22-30) mmol/L Anion Gap (5-15) MEQ/L BUN (7-17) mg/dL Creatinine (0.52-1.04) mg/dL Estimated GFR ML/MIN Glucose (74-106) mg/dL POC Glucometer 201 H 329 H 297 H (74 to 106) mg/dL Calcium (8.4-10.2) mg/dL 0510/11/21 10/11/21 Range/Units 06:10 06:10 07:31 WBC 9.6 (4.0-10.5) x10^3/uL RBC 3.42 L (4.1-5.4) x10^6/uL Hgb 9.2 L (12.0-16.0) g/dL Hct 30.5 L (35-47) % MCV 89.2 (78-100) fL MCH 26.9 (26-32) pg MCHC 30.2 L (32-36) g/dL RDW 14.6 H (11.5-14.0) % Plt Count 274 (150-450) x10^3/uL MPV 10.9 (7.5-11.0) fL Gran % 81.4 H (36.0-66.0) % Immature Gran % (Auto) 0.3 (0.00-0.4) % Nucleat RBC Rel Count 0.0 (0.00-0.1) % Eos # (Auto) 0.01 (0-0.5) x10^3/uL Immature Gran # (Auto) 0.03 (0.00-0.03) x10^3u/L Absolute Lymphs (auto) 1.12 (1.0-4.6) x10^3/uL Absolute Monos (auto) 0.61 (0.0-1.3) x10^3/uL Absolute Nucleated RBC 0.00 (0.00-0.01) x10^3u/L Lymphocytes % 11.7 L (24.0-44.0) % Monocytes % 6.4 (0.0-12.0) % Eosinophils % 0.1 (0.00-5.0) % Basophils % 0.1 (0.0-0.4) % Absolute Granulocytes 7.81 H (1.4-6.9) x10^3/uL Basophils # 0.01 (0-0.4) x10^3/uL Sodium 139 (137-145) mmol/L Potassium 4.2 (3.5-5.1) mmol/L Chloride 111 H (98-107) mmol/L Carbon Dioxide 18 L (22-30) mmol/L Anion Gap 14.9 (5-15) MEQ/L BUN 13 (7-17) mg/dL Creatinine 0.59 (0.52-1.04) mg/dL Estimated GFR > 60.0 ML/MIN Glucose 166 H (74-106) mg/dL POC Glucometer 166 H (74 to 106) mg/dL Calcium 8.2 L (8.4-10.2) mg/dL Radiology Exams: Radiology Procedures Category Date Time Status CHEST ULTRASOUND [US] Stat Exams 10/09/21 12:19 Completed Assessment/Plan (1) Abscess or cellulitis of chest wall Current Visit: Yes Status: Acute Assessment & Plan: POD #1 s/p incision and drainage, currently on vanc/zosyn and awaiting wound culture results. likely home on po treatment when drainage slows and culture data available Code(s): CBV4603 - (2) Morbid obesity Current Visit: Yes Status: Acute Code(s): E66.01 - MORBID (SEVERE) OBESITY DUE TO EXCESS CALORIES (3) Diabetes Current Visit: No Status: Acute Code(s): E11.9 - TYPE 2 DIABETES MELLITUS WITHOUT COMPLICATIONS
[2021-10-11] MEDS: HUMALOG SQ PRN ×2 (08:17→11:46)
[2021-10-11] MEDS: VANCOMYCIN 1 GRAM/200 ML BAG 1 GM/200 ML PIGGYBACK IV SCH ×2 (10:06→21:33)
[2021-10-11] MEDS: SYNTHROID 25 MCG PO SCH (10:06)
[2021-10-11] MEDS: Zestril 10 MG PO SCH (10:06)
[2021-10-11] MEDS: COREG 12.5 MG PO SCH ×2 (10:06→21:34)
[2021-10-11] MEDS: NORVASC 5 MG PO SCH (10:06)
[2021-10-11] MEDS: Klor Con PO SCH ×3 (10:07→21:34)
[2021-10-11] MEDS: ZOCOR 20MG PO SCH (10:08)
[2021-10-11] MEDS: Lantus Insulin SQ SCH ×2 (10:08→21:34)
[2021-10-11] MEDS: Effexor XR 75 MG PO SCH (10:08)
[2021-10-11] MEDS: Lasix 40 MG PO SCH (10:08)
[2021-10-11] MEDS: Protonix 40MG Tablet PO SCH (10:08)
[2021-10-12] MEDS: PIPERACILLIN/TAZOBACTAM 3.375 GM in Sodium Chloride 100ML MINI-BAG PLUS 100 ML IV SCH ×3 (00:03→12:40)
[2021-10-12 05:00] LABS: Absolute Neutrophil Ct (ANC) 5.32 x10^3/uL (1.4-6.9); Basophil (Absolute #) 0.04 x10^3/uL (0-0.4); Eosinophil % 3.7 % (0.00-5.0); Eosinophil (Absolute #) 0.32 x10^3/uL (0-0.5); Hematocrit 31.2 % (35-47); Hemoglobin 9.2 g/dL (12.0-16.0); Lymphocyte (Absolute #) 2.27 x10^3/uL (1.0-4.6); Lymphocytes % 26.3 % (24.0-44.0); Mean Cell Volume 89.9 fL (78-100); Mean Corpuscular Hemoglobin 26.5 pg (26-32); Mean Corpuscular Hgb Concent. 29.5 g/dL (32-36); Mean Platelet Volume 10.4 fL (7.5-11.0); Monocyte (Absolute #) 0.64 x10^3/uL (0.0-1.3); Monocytes % 7.4 % (0.0-12.0); Neutrophil % 61.6 % (36.0-66.0); Platelet Count 324 x10^3/uL (150-450); Red Blood Count 3.47 x10^6/uL (4.1-5.4); Red Cell Distribution Width 14.6 % (11.5-14.0); White Blood Count 8.6 x10^3/uL (4.0-10.5)
[2021-10-12 05:34] LABS: ANION GAP 11.7 MEQ/L (5-15); BLOOD UREA NITROGEN 10 mg/dL (7-17); CHLORIDE 110 mmol/L (98-107); Calcium 8.7 mg/dL (8.4-10.2); Carbon Dioxide 25 mmol/L (22-30); Creatinine 1 0.62 mg/dL (0.52-1.04); EST GLOMERULAR FILTRATION RATE > 60.0 ML/MIN; Glucose 131 mg/dL (74-106); Potassium 4.5 mmol/L (3.5-5.1); SODIUM 142 mmol/L (137-145)
[2021-10-12] MEDS: PATIENT OWN MEDICATION IH SCH ×4 (07:20→19:07)
[2021-10-12] MEDS ORDERED: TROUGH DRUG LEVELS IJ ONE (09:30)
[2021-10-12] MEDS: Lantus Insulin SQ SCH ×2 (10:43→21:49)
[2021-10-12] MEDS: Lasix 40 MG PO SCH (10:45)
[2021-10-12] MEDS: Klor Con PO SCH ×3 (10:46→21:51)
[2021-10-12] MEDS: SYNTHROID 25 MCG PO SCH (10:46)
[2021-10-12] MEDS: Zestril 10 MG PO SCH (10:47)
[2021-10-12] MEDS: Effexor XR 75 MG PO SCH (10:47)
[2021-10-12] MEDS: COREG 12.5 MG PO SCH ×2 (10:47→21:51)
[2021-10-12] MEDS: Protonix 40MG Tablet PO SCH (10:48)
[2021-10-12] MEDS: VANCOMYCIN 1 GRAM/200 ML BAG 1 GM/200 ML PIGGYBACK IV SCH ×2 (10:51→21:51)
[2021-10-12] MEDS: NORVASC 5 MG PO SCH (10:51)
[2021-10-12] MEDS: ZOCOR 20MG PO SCH (12:40)
--- NOTE | 2021-10-12 23:52 | PCM.NOTE ---
Date and Time: 10/12/212347 Subjective Assessment: abcess left upper back still very large red area size of a fist. packing changed and had some purulent matter/minimal , repacked. Patient has had bed bugs and states this is why she had the abcess. Objective Exam Wound Assessment: Skin/Wound Assessment Wound/Incision Assessment Start: 10/09/21 00:48 Text: Status: Active Freq: Q6H Protocol: Document 10/12/21 20:00 RB (Rec: 10/12/21 23:23 RB [id number]) Wound/Incision Assessment Left Lateral Chest Wound Assessment Shift Assessment Wound Type Incision Wound Stage Non Pressure Wound Dressing Status Changed Drainage Amount Minimal Drainage Description Yellow Drainage Odor None/Absent Secondary Dressing Absorbant Pad Wound Photo Photo Taken No OBJECTIVE DATA Vital Signs: Vital Signs - 24 hr Temp Pulse Resp BP Pulse Ox 10/12/21 19:36 97.9 F 94 H 16 130/65 98 10/12/21 19:07 92 H 16 98 10/12/21 16:50 97.7 F 89 16 143/63 98 10/12/21 15:00 86 18 97 10/12/21 13:00 97.2 F 83 16 127/61 99 10/12/21 10:55 88 18 95 10/12/21 09:00 98.0 F 90 16 141/65 95 10/12/21 07:24 92 H 18 93 L 10/12/21 05:00 98.0 F 90 18 158/74 95 10/12/21 00:11 97.7 F 84 18 114/58 94 L Pain Assessment - Last Documented Pain Intensity 0 Pain Scale Used 0-10 Pain Scale Intake and Output: Intake & Output 10/10/21 10/11/21 10/12/21 10/13/21 11:59 11:59 11:59 11:59 Intake Total 3268 2121 2112 Output Total 550 1900 900 Balance 2718 2121 212 -900 Weight 124.6 kg Lab Results: Lab Results-Last 24 Hours 10/12/21 10/12/21 10/12/21 Range/Units 04:45 04:45 07:21 WBC 8.6 (4.0-10.5) x10^3/uL RBC 3.47 L (4.1-5.4) x10^6/uL Hgb 9.2 L (12.0-16.0) g/dL Hct 31.2 L (35-47) % MCV 89.9 (78-100) fL MCH 26.5 (26-32) pg MCHC 29.5 L (32-36) g/dL RDW 14.6 H (11.5-14.0) % Plt Count 324 (150-450) x10^3/uL MPV 10.4 (7.5-11.0) fL Gran % 61.6 (36.0-66.0) % Immature Gran % (Auto) 0.5 H (0.00-0.4) % Nucleat RBC Rel Count 0.0 (0.00-0.1) % Eos # (Auto) 0.32 (0-0.5) x10^3/uL Immature Gran # (Auto) 0.04 H (0.00-0.03) x10^3u/L Absolute Lymphs (auto) 2.27 (1.0-4.6) x10^3/uL Absolute Monos (auto) 0.64 (0.0-1.3) x10^3/uL Absolute Nucleated RBC 0.00 (0.00-0.01) x10^3u/L Lymphocytes % 26.3 (24.0-44.0) % Monocytes % 7.4 (0.0-12.0) % Eosinophils % 3.7 (0.00-5.0) % Basophils % 0.5 (0.0-0.4) % Absolute Granulocytes 5.32 (1.4-6.9) x10^3/uL Basophils # 0.04 (0-0.4) x10^3/uL Sodium 142 (137-145) mmol/L Potassium 4.5 (3.5-5.1) mmol/L Chloride 110 H (98-107) mmol/L Carbon Dioxide 25 (22-30) mmol/L Anion Gap 11.7 (5-15) MEQ/L BUN 10 (7-17) mg/dL Creatinine 0.62 (0.52-1.04) mg/dL Estimated GFR > 60.0 ML/MIN Glucose 131 H (74-106) mg/dL POC Glucometer 95 (74 to 106) mg/dL Calcium 8.7 (8.4-10.2) mg/dL Vancomycin Trough (10-20) ug/mL 10/12/21 10/12/21 10/12/21 Range/Units 09:25 11:55 16:42 WBC (4.0-10.5) x10^3/uL RBC (4.1-5.4) x10^6/uL Hgb (12.0-16.0) g/dL Hct (35-47) % MCV (78-100) fL MCH (26-32) pg MCHC (32-36) g/dL RDW (11.5-14.0) % Plt Count (150-450) x10^3/uL MPV (7.5-11.0) fL Gran % (36.0-66.0) % Immature Gran % (Auto) (0.00-0.4) % Nucleat RBC Rel Count (0.00-0.1) % Eos # (Auto) (0-0.5) x10^3/uL Immature Gran # (Auto) (0.00-0.03) x10^3u/L Absolute Lymphs (auto) (1.0-4.6) x10^3/uL Absolute Monos (auto) (0.0-1.3) x10^3/uL Absolute Nucleated RBC (0.00-0.01) x10^3u/L Lymphocytes % (24.0-44.0) % Monocytes % (0.0-12.0) % Eosinophils % (0.00-5.0) % Basophils % (0.0-0.4) % Absolute Granulocytes (1.4-6.9) x10^3/uL Basophils # (0-0.4) x10^3/uL Sodium (137-145) mmol/L Potassium (3.5-5.1) mmol/L Chloride (98-107) mmol/L Carbon Dioxide (22-30) mmol/L Anion Gap (5-15) MEQ/L BUN (7-17) mg/dL Creatinine (0.52-1.04) mg/dL Estimated GFR ML/MIN Glucose (74-106) mg/dL POC Glucometer 177 H 118 H (74 to 106) mg/dL Calcium (8.4-10.2) mg/dL Vancomycin Trough 15.51 (10-20) ug/mL 10/12/ Range/Units 21:31 WBC (4.0-10.5) x10^3/uL RBC (4.1-5.4) x10^6/uL Hgb (12.0-16.0) g/dL Hct (35-47) % MCV (78-100) fL MCH (26-32) pg MCHC (32-36) g/dL RDW (11.5-14.0) % Plt Count (150-450) x10^3/uL MPV (7.5-11.0) fL Gran % (36.0-66.0) % Immature Gran % (Auto) (0.00-0.4) % Nucleat RBC Rel Count (0.00-0.1) % Eos # (Auto) (0-0.5) x10^3/uL Immature Gran # (Auto) (0.00-0.03) x10^3u/L Absolute Lymphs (auto) (1.0-4.6) x10^3/uL Absolute Monos (auto) (0.0-1.3) x10^3/uL Absolute Nucleated RBC (0.00-0.01) x10^3u/L Lymphocytes % (24.0-44.0) % Monocytes % (0.0-12.0) % Eosinophils % (0.00-5.0) % Basophils % (0.0-0.4) % Absolute Granulocytes (1.4-6.9) x10^3/uL Basophils # (0-0.4) x10^3/uL Sodium (137-145) mmol/L Potassium (3.5-5.1) mmol/L Chloride (98-107) mmol/L Carbon Dioxide (22-30) mmol/L Anion Gap (5-15) MEQ/L BUN (7-17) mg/dL Creatinine (0.52-1.04) mg/dL Estimated GFR ML/MIN Glucose (74-106) mg/dL POC Glucometer 159 H (74 to 106) mg/dL Calcium (8.4-10.2) mg/dL Vancomycin Trough (10-20) ug/mL
[2021-10-13 05:21] LABS: Hematocrit 31.2 % (35-47); Hemoglobin 9.5 g/dL (12.0-16.0); Mean Cell Volume 88.6 fL (78-100); Mean Corpuscular Hgb Concent. 30.4 g/dL (32-36); Mean Platelet Volume 10.5 fL (7.5-11.0); Platelet Count 374 x10^3/uL (150-450); Red Blood Count 3.52 x10^6/uL (4.1-5.4); Red Cell Distribution Width 14.8 % (11.5-14.0); White Blood Count 8.2 x10^3/uL (4.0-10.5)
[2021-10-13] MEDS: PATIENT OWN MEDICATION IH SCH ×2 (07:44→11:31)
--- NOTE | 2021-10-13 07:47 | CONS ---
CONSULT DATE: 10/09/2021 REASON FOR CONSULT: Cellulitis possible abscess left chest wall. HISTORY: The patient was doing okay up until just a few days ago. She came in last night. She has been working hard on I believe a different living location. She had some bed bugs, had some other issues with spiders. She has what is consistent possibly with a bite in between the left breast and left scapular tip this is sort of the center of the issue. It is about 3 or 4 inches thick. There is transverse elliptical cellulitis extending from underneath the scapular tip all the way in front into the breast. It has an indurated area almost in the axillary line. She did have a temperature this morning of 101F. She had ultrasound that did not show specific abscess. IMPRESSION: Despite the ultrasound being negative, I feel this most certainly is an abscess here. I think it will probably come to a head a little bit more. PLAN: We will place warm compresses, continue IV antibiotics. She will be NPO after midnight as there is a reasonable chance that she will need I&D tomorrow.
--- NOTE | 2021-10-13 08:20 | OP ---
SURGERY DATE/TIME: 10/10/2021 1028 PREOPERATIVE DIAGNOSIS: Left chest wall abscess. POSTOPERATIVE DIAGNOSES: Left chest wall abscess. PROCEDURES: Incision and drainage left chest wall abscess extensive. SURGEON: Alex Arellano M.D. ANESTHESIA: General. ESTIMATED BLOOD LOSS: 30 cc. COMPLICATIONS: None. SPECIMEN: Culture left chest wall abscess. FINDINGS: Large multi-loculated abscess in the left chest wall involving portion of the breast, left lateral back and axilla. PATIENT PRESENTATION: This patient presents with severe infection with overlying cellulitis in the left lateral chest extending to the back, axilla and breast. After discussing risks and benefits of incision and drainage the patient wished to proceed. DESCRIPTION OF PROCEDURE: The patient was brought to the operating room and placed in supine with a bump and under general anesthesia the area is prepped and draped in sterile fashion. A transverse incision was made over a part of this area of fluctuance. The subcutaneous tissue was severely edematous. A clamp was inserted and the deeper area entered. There was a big pocket but no pus in the immediate pocket. A finger was used to probe some superiorly and a large pus pocket was entered. There was additional pus pocket entered by finger dissection posteriorly, superiorly and inferiorly and multi-loculated large area was freed up. There was a bleeding vessel that was controlled with medium clip brake holder. The wound was irrigated and suctioned dry. Cultures were sent of the purulent fluid with swabs. Kerlix was tacked wet. A dressing applied. The patient recovered and taken back to postoperative anesthesia care unit in stable condition.
[2021-10-13] MEDS: Zestril 10 MG PO SCH (09:04)
[2021-10-13] MEDS: Protonix 40MG Tablet PO SCH (09:04)
[2021-10-13] MEDS: VANCOMYCIN 1 GRAM/200 ML BAG 1 GM/200 ML PIGGYBACK IV SCH (09:04)
[2021-10-13] MEDS: Lasix 40 MG PO SCH (09:04)
[2021-10-13] MEDS: SYNTHROID 25 MCG PO SCH (09:04)
[2021-10-13] MEDS: Klor Con PO SCH (09:04)
[2021-10-13] MEDS: Effexor XR 75 MG PO SCH (09:04)
[2021-10-13] MEDS: ZOCOR 20MG PO SCH (09:05)
[2021-10-13] MEDS: COREG 12.5 MG PO SCH (09:05)
[2021-10-13] MEDS: NORVASC 5 MG PO SCH (09:05)
[2021-10-13] MEDS: Lantus Insulin SQ SCH (09:05)
--- NOTE | 2021-10-13 10:08 | PCM.DS ---
Discharge Summary Date of Admission: 10/09/21 00:47 Admitting Physician: LAQUITA CEDEÑO Consults: Consults on Case 10/09/21 08:41 Consult Surgery ROUTINE Primary Care Provider: VON PARADA Allergies Allergies Sulfa (Sulfonamide Antibiotics) Allergy (Verified 10/08/21 21:51) Hospital Summary - Hospital Course Hospital Course: Pt is a 65 yo female pt of mine with DM, COPD, HTN, hypertriglyceridemia, hypo thyroidism, OA (with gait abnormity), and morbid obesity who was admitted through ER with cellulitis of L axilla. She was started on IV vanc and zosyn and is now on day #5. On her second hospital day the abscess was drained by Dr. Arellano and her pain improved after that. The culture grew stapholococcus, susceptible to vancomycin, as well as doxycycline, bactrim, and clindamycin. She is eating well and would like ot discharge to home today, if cleared by surgery. If they have no preference on antibiotics, would send her home on clindamycin 300mg po QID x 10d with lactobacillus as well. - Vitals & Intake/Output Vital Signs: Vital Signs Temperature 97.7 F 10/13/21 05:00 Pulse Rate 96 H 10/13/21 08:55 Respiratory Rate 18 10/13/21 08:55 Blood Pressure 144/70 10/13/21 05:00 O2 Sat by Pulse Oximetry 92 L 10/13/21 08:55 Intake & Output: Intake & Output 10/10/21 10/11/21 10/12/21 10/13/21 11:59 11:59 11:59 11:59 Intake Total 3268 2121 2112 240 Output Total 550 1900 900 Balance 2718 2121 212 -660 Weight 124.6 kg - Lab Result Diagrams: 10/13/21 04:20 10/12/21 04:45 Lab Results-Last 24 Hrs: Lab Results-Last 24 Hours 10/12/21 10/12/21 10/12/21 Range/Units 09:25 11:55 16:42 WBC (4.0-10.5) x10^3/uL RBC (4.1-5.4) x10^6/uL Hgb (12.0-16.0) g/dL Hct (35-47) % MCV (78-100) fL MCH (26-32) pg MCHC (32-36) g/dL RDW (11.5-14.0) % Plt Count (150-450) x10^3/uL MPV (7.5-11.0) fL POC Glucometer 177 H 118 H (74 to 106) mg/dL Vancomycin Trough 15.51 (10-20) ug/mL 10/12/21 10/13/21 10/13/21 Range/Units 21:31 04:20 07:10 WBC 8.2 (4.0-10.5) x10^3/uL RBC 3.52 L (4.1-5.4) x10^6/uL Hgb 9.5 L (12.0-16.0) g/dL Hct 31.2 L (35-47) % MCV 88.6 (78-100) fL MCH 27.0 (26-32) pg MCHC 30.4 L (32-36) g/dL RDW 14.8 H (11.5-14.0) % Plt Count 374 (150-450) x10^3/uL MPV 10.5 (7.5-11.0) fL POC Glucometer 159 H 82 (74 to 106) mg/dL Vancomycin Trough (10-20) ug/mL Micro Results-Entire Visit: Microbiology 10/08/21 22:50 Blood Culture Gram Stain - Final Blood Not Reportable Blood Culture - Final NO GROWTH 10/08/21 22:50 Blood Culture Gram Stain - Final Blood Not Reportable Blood Culture - Final NO GROWTH 10/10/21 11:03 Wound Culture - Final Back - Left Upper Staphylococcus Aureus Accuchecks Date 10/13/21 Date 10/12/21 Date 10/12/21 Date 10/12/21 Time 07:00 Time 21:36 Time 16:50 Time 12:10 - Procedures and Test Procedures and Tests throughout Hospitalization: Therapy Orders & Screens 10/09/21 14:19 Respiratory Therapy Assessment DAILY Comment: Diagnosis: Cellulitis 10/09/21 14:20 BiPap/CPAP ROUTINE Comment: Diagnosis: Cellulitis 10/09/21 15:00 Respiratory MDI UD Comment: Diagnosis: Cellulitis 10/10/21 10:16 EKG STAT Comment: Diagnosis: Cellulitis Discharge Exam General Appearance: no apparent distress, obese Neurologic Exam: oriented x 3, cooperative Eye Exam: eyes nml inspection Ears, Nose, Throat Exam: moist mucous membranes Neck Exam: normal inspection, non-tender, No lymphadenopathy, No subcutaneous emphysema, No thyromegaly Respiratory Exam: normal breath sounds, lungs clear, No crackles/rales, No rhonchi, No wheezing Cardiovascular Exam: regular rate/rhythm, normal heart sounds, No murmur Gastrointestinal/Abdomen Exam: soft, normal bowel sounds Extremity Exam: No pedal edema, No swelling Skin Exam: warm, dry, other (Inferior to L axilla, there is an approx 81m23kd area covered by bandage; superior to that there is an approx 3cm area of induration and mild erythema.), No rash Wound Assessment: Skin/Wound Assessment Wound/Incision Assessment Start: 10/09/21 00:48 Text: Status: Active Freq: Q6H Protocol: Document 10/13/21 02:00 RB (Rec: 10/13/21 05:41 RB [id number]) Wound/Incision Assessment Left Lateral Chest Wound Assessment Shift Assessment Wound Type Incision Wound Stage Non Pressure Wound Dressing Status Changed Drainage Amount Minimal Drainage Description Yellow Drainage Odor None/Absent Secondary Dressing Absorbant Pad Wound Photo Photo Taken No Final Diagnosis/Problem List - Final Discharge Diagnosis/Problem (1) Abscess or cellulitis of chest wall Current Visit: Yes Status: Acute Assessment & Plan: It is feeling better after I&D and she has been on appropriate antibiotics. If cleared by surgery, would send home today. Code(s): HJM6971 - (2) Morbid obesity Current Visit: Yes Status: Chronic Code(s): E66.01 - MORBID (SEVERE) OBESITY DUE TO EXCESS CALORIES (3) Diabetes Current Visit: No Status: Chronic Code(s): E11.9 - TYPE 2 DIABETES MELLITUS WITHOUT COMPLICATIONS - Discharge Disposition: Home, Self-Care Condition: Good Prescriptions: New Lactobacillus Acidophilus [Acidophilus TABLET] 1 tab PO TID #30 tablet Continue Liraglutide [Victoza 2-Rah] 1.8 mg SQ BID Venlafaxine HCl ER 75 mg [Effexor XR 75 MG] 75 mg PO DAILY Insulin Aspart [Novolog Flexpen] 15 unit SQ AC Furosemide 40 mg [Lasix 40 MG] 80 mg PO DAILY Colesevelam HCl 625 mg [Welchol 625 mg] 1,875 mg PO BID Sitagliptin Phos/Metformin HCl [Janumet 50-500 mg Tablet] 1 tablet PO BID Levothyroxine Sodium 25 Mcg [Synthroid 25 Mcg] 25 mcg PO DAILY Lisinopril 10 mg [Zestril 10 MG] 20 mg PO DAILY Carvedilol 3.125 mg [Coreg 3.125 MG] 12.5 mg PO BID Potassium Chloride [Potassium Chloride 20MEQ/15ML] 20 meq PO TID Metformin HCl 500 mg [Glucophage 500 MG] 500 mg PO BIDWM Omeprazole 40 mg PO DAILY Fluticasone Propionate [Flonase NASAL] 1 spray .ROUTE DAILY Budesonide/Formoterol Fumarate [Symbicort 80-4.5 Mcg Inhaler] 2 puff PO DAILY Atorvastatin Calcium 40 mg PO DAILY Albuterol Sulfate [Ventolin Hfa] 2 puffs PO QID Albuterol Sulfate [Proair Hfa] 8.5 gm IH Q4H PRN PRN #1 [id number] PRN Reason: Wheezing/Chest Congestion Amlodipine Besylate [Norvasc] 2.5 mg PO DAILY Insulin Detemir [Levemir] 30 unit SQ BID Ketoconazole Cream [Nizoral CREAM] 0 gm TOP BID Permethrin Cream [Elimite CREAM] 0 gm TP DAILY Follow up with: GUSTAVO ARELLANO MD [ACTIVE STAFF] - 1 Week VON PARADA [Primary Care Provider] -
[2021-10-13 12:45] VITALS: BP 121/56; PULSE 84; O2SAT 94
== END 2021-10-13 14:20 | disposition home or self-care (01) | DRG 603 ==
LOC: ED 21:31 → MED SURG 10-09 00:47 → OBSVTOIN 10-10 10:56
PROVIDERS: ADMIT Family Medicine; ATTEND Family Medicine
PROC: 0W983ZZ Drainage of Chest Wall, Percutaneous Approach (ICD-10-PCS; principal; 2021-10-10)
DX: L03.313 Cellulitis of chest wall (principal); E11.9 Type 2 diabetes mellitus without complications; E66.01 Morbid (severe) obesity due to excess calories; I10 Essential (primary) hypertension; E03.9 Hypothyroidism, unspecified; Z79.899 Other long term (current) drug therapy; Z20.828 Contact with and (suspected) exposure to other viral communicable diseases; Z20.7 Contact with and (suspected) exposure to pediculosis, acariasis and other infestations
CPT/HCPCS: 0241U; 36000; 36415; 76604; 80048; 80053; 80202; 81015; 82947; 83605; 85025; 85027; 87040; 87070; 87077; 87186; 93005; 94640; 94760; 96365; 96367; 99140; 99285; G0378; J0330; J1100; J1817; J2250; J2405; J2704; J3010; J7609; A9270-GY; J3370

== ENCOUNTER 2021-10-14 17:54 | Emergency (ER) | payer MEDICARE ==
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
[2021-10-14] MEDS ORDERED: NORCO 5/325 MG PO ONE ×2 (19:42)
[2021-10-14 19:44] VITALS: BP 150/84; PULSE 103; O2SAT 98
[2021-10-14] MEDS ORDERED: NORCO 5/325 MG ONE (19:47)
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
== END 2021-10-14 20:00 | disposition home or self-care (01) ==
LOC: ED 17:54
DX: S50.11XA Contusion of right forearm, initial encounter (principal); V49.50XA Passenger injured in collision with unspecified motor vehicles in traffic accident, initial encounter; M79.631 Pain in right forearm; E11.9 Type 2 diabetes mellitus without complications; Z79.4 Long term (current) use of insulin; Z79.899 Other long term (current) drug therapy
CPT/HCPCS: 73090; 99285; A9270-GY

== ENCOUNTER 2023-11-15 17:09 | Emergency (ER) | payer MEDICARE, OTHER ==
[2023-11-15 17:12] VITALS: BP 145/95; PULSE 99; RESP 18; TEMP 97.1; O2SAT 97
--- NOTE | 2023-11-15 17:52 | ERPHSYRPT ---
- History of Present Illness Time Seen by Provider: 11/15/23 17:30 Source: patient Exam Limitations: no limitations Patient Subjective Stated Complaint: pt here for a fall, she states she tripped on a rock. ems helped pt up, she denies any injury but wanted to be checked out Triage Nursing Assessment: pt alert, arrived per ems, able to transfer from cot to bed, skin w/d/p. moves all ext well Physician History: 68-year-old female presents to our ED via EMS for evaluation status post fall. Patient states she was walking on gravel and tripped. Patient fell onto her outstretched arms. Patient has a BMI of 49.6. She needed assistance standing. EMS brought her to our ED for evaluation. Upon arrival patient had no complaints. Patient denied pain. The fall was mechanical. It was not associated with any neuro cardiovascular symptomology. No chest pain or shortness of breath. No nausea vomiting or diaphoresis. No numbness tingling or weakness. Has no complaints. Denies pain. Declined pain medication. Patient does not feel she needs any imaging studies or x-rays. Patient voices no other complaints or concerns at this time. Timing/Duration: today Severity: mild Modifying Factors: Improves With: nothing Associated Symptoms: denies symptoms Allergies/Adverse Reactions: Sulfa (Sulfonamide Antibiotics) Allergy (Verified 11/15/23 17:10) Home Medications: Colesevelam HCl 625 mg [Welchol 625 mg] 1,875 mg PO BID 07/15/15 [History] Furosemide 40 mg [Lasix 40 MG] 80 mg PO DAILY 07/15/15 [History] Insulin Aspart [Novolog Flexpen] 15 unit SQ AC 07/15/15 [History] Levothyroxine Sodium 25 Mcg [Synthroid 25 Mcg] 25 mcg PO DAILY 07/15/15 [History] Liraglutide [Victoza 2-Rah] 1.8 mg SQ BID 07/15/15 [History] Lisinopril 10 mg [Zestril 10 MG] 20 mg PO DAILY 07/15/15 [History] Sitagliptin Phos/Metformin HCl [Janumet 50-500 mg Tablet] 1 tablet PO BID 07/15/15 [History] Venlafaxine HCl ER 75 mg [Effexor XR 75 MG] 75 mg PO DAILY 07/15/15 [History] Carvedilol 3.125 mg [Coreg 3.125 MG] 12.5 mg PO BID 07/31/15 [History] Potassium Chloride [Potassium Chloride 20MEQ/15ML] 20 meq PO TID 07/31/15 [History] Metformin HCl 500 mg [Glucophage 500 MG] 500 mg PO BIDWM 03/02/18 [History] Omeprazole 40 mg PO DAILY 03/02/18 [History] Albuterol Sulfate [Ventolin Hfa] 2 puffs PO QID 02/05/19 [History] Atorvastatin Calcium 40 mg PO DAILY 02/05/19 [History] Budesonide/Formoterol Fumarate [Symbicort 80-4.5 Mcg Inhaler] 2 puff PO DAILY 02/05/19 [History] Fluticasone Propionate [Flonase NASAL] 1 spray .ROUTE DAILY 02/05/19 [History] Amlodipine Besylate [Norvasc] 2.5 mg PO DAILY 10/08/21 [History] Insulin Detemir [Levemir] 30 unit SQ BID 10/08/21 [History] Ketoconazole Cream [Nizoral CREAM] 0 gm TOP BID 10/09/21 [History] Permethrin Cream [Elimite CREAM] 0 gm TP DAILY 10/09/21 [History] Hx Tetanus, Diphtheria Vaccination/Date Given: Yes Hx Influenza Vaccination/Date Given: Yes Hx Pneumococcal Vaccination/Date Given: Yes Immunizations Up to Date: Yes Travel Risk - International Travel Have you traveled outside of the country in past 3 weeks: No - Emerging Infectious Disease Are you exhibiting symptoms associated with any current EIDs: No - Review of Systems Constitutional: No Symptoms, No Fever, No Chills Eyes: No Symptoms Ears, Nose, & Throat: No Symptoms Respiratory: No Symptoms, No Cough, No Dyspnea Cardiac: No Symptoms, No Chest Pain, No Edema, No Syncope Abdominal/Gastrointestinal: No Symptoms, No Abdominal Pain, No Nausea, No Vomiting, No Diarrhea Genitourinary Symptoms: No Symptoms, No Dysuria Musculoskeletal: No Symptoms, No Back Pain, No Neck Pain Skin: No Symptoms, No Rash Neurological: No Symptoms, No Dizziness, No Focal Weakness, No Sensory Changes Psychological: No Symptoms Endocrine: No Symptoms Hematologic/Lymphatic: No Symptoms Immunological/Allergic: No Symptoms All Other Systems: Reviewed and Negative - Past Medical History Pertinent Past Medical History: Yes Neurological History: No Pertinent History ENT History: No Pertinent History Cardiac History: Hypertension, Other Respiratory History: Other Endocrine Medical History: Diabetes Type II Musculoskeletal History: No Pertinent History GI Medical History: No Pertinent History History: No Pertinent History Psycho-Social History: Anxiety, Depression Female Reproductive Disorders: Cervical Cancer Other Medical History: SMALL HOLE IN HER HEART, EDEMA IN B LE, SOB UPON EXERTION - Past Surgical History Past Surgical History: Yes Neuro Surgical History: No Pertinent History Cardiac: No Pertinent History Respiratory: No Pertinent History Gastrointestinal: Appendectomy Genitourinary: No Pertinent History Musculoskeletal: No Pertinent History Female Surgical History: Dilation & Curettage, Tubal Ligation Other Surgical History: D&C, i&d abcess L chest - Social History Smoking Status: Former smoker Exposure to second hand smoke: No Drug Use: none Patient Lives Alone: No - Social Determinants of Health Will the patient participate in the screening: Yes Do you worry about a steady place to live?: Yes Do you have any problems with any of the following?: No known problems In the past 12 months,have you had to go without utilities?: No Transportation Issues: No Has anyone in your support network made you feel unsafe?: No Have you or anyone in your house had to go without enough: Yes Comment: hard to get upstairs to apartment , worries about paying bills - Nursing Vital Signs Nursing Vital Signs: Initial Vital Signs Temperature 97.1 F 11/15/23 17:11 Pulse Rate 99 H 11/15/23 17:11 Respiratory Rate 18 11/15/23 17:11 Blood Pressure 145/95 11/15/23 17:11 O2 Sat by Pulse Oximetry 97 11/15/23 17:11 Pain Scale Pain Intensity 0 - Physical Exam General Appearance: no apparent distress, alert Eye Exam: PERRL/EOMI, eyes nml inspection Ears, Nose, Throat Exam: normal ENT inspection, moist mucous membranes Neck Exam: normal inspection, non-tender, supple, full range of motion Respiratory Exam: normal breath sounds, lungs clear, airway intact, No respiratory distress Cardiovascular Exam: regular rate/rhythm, normal heart sounds, normal peripheral pulses Gastrointestinal/Abdomen Exam: soft, normal bowel sounds, No tenderness, No mass Back Exam: normal inspection, normal range of motion, No CVA tenderness, No vertebral tenderness Extremity Exam: normal inspection, normal range of motion, pelvis stable Neurologic Exam: alert, oriented x 3, cooperative, normal mood/affect, nml cerebellar function, nml station & gait, sensation nml, No motor deficits Skin Exam: normal color, warm, dry, No rash Lymphatic Exam: No adenopathy SpO2 Interpretation: normal SpO2: 97 O2 Delivery: Room Air - Course Nursing assessment & vital signs reviewed: Yes Ordered Tests: Active Orders 24 hr Category Date Time Status ACO SDOH Referral ONCE Cons 11/15/23 17:21 Active - Progress Progress: unchanged Progress Note: 68-year-old female presents to our ED status post fall on gravel. Patient lost her balance. EMS brought patient to our ED for an evaluation. Patient asymptomatic. Patient ambulated in our ED. Patient states she feels well she is functioning at her baseline. Patient normally uses a straight cane. We ambulated patient using a pickup walker. Patient requested a pickup walker as she feels more stable versus a straight cane. Physical therapy evaluated patient for a walker. No indication for workup. Patient remains asymptomatic. Will discharge home. Patient voices no other complaints or concerns at this time. Portions of this note were created with voice recognition technology. There may be grammatical, spelling, punctuation or sound alike errors Complexity problem addressed is moderate acute complicated. No critical care time. Complex of data reviewed and analyzed is none. No specialized testing ordered. Diagnosis made based on history and physical. Risk of complication and or risk of morbidity/mortality patient management is moderate. Patient received a prescription for a walker. Vital stable. Time spent to discharge patient is approximately 30 minutes. This included our physical exam or functional exam and physical therapy consultation for discharge. Plan of care established for shared decision making. No social determinants of health present impede follow-up. Portions of this note were created with voice recognition technology. There may be grammatical, spelling, punctuation or sound alike errors 11/15/23 17:48 Patient evaluated at physical therapy. They recommend a bariatric rolling walker. Prescription written for walker as per physical therapy. 11/15/23 18:03 Counseled pt/family regarding: diagnosis, need for follow-up - Departure Departure Disposition: Home Clinical Impression: Fall Condition: Stable Critical Care Time: No Referrals: LAQUITA CEDEÑO MD [Primary Care Provider] - Follow up/PCP as directed Additional Instructions: Discharge/Care Plan ALEENA COVARRUBIAS was seen on 11/15/23 in the Emergency Room. The patient was counseled regarding Diagnosis,Lab results, Imaging studies, need for follow up and when to return to the Emergency Room. Prescriptions given: Discharge Note I have spoken with the patient and/or caregivers. I have explained the patient's condition, diagnosis and treatment plan based on the information available to me at this time. I have answered the patient's and/or caregiver's questions and addressed any concerns. The patient and/or caregivers have as good understanding of the patient's diagnosis, condition and treatment plan as can be expected at this point. The vital signs have been stable. The patient's condition is stable and appropriate for discharge from the emergency department. The patient will pursue further outpatient evaluation with the primary care physician or other designated or consulting physician as outlined in the discharge instructions. The patient and/or caregivers are agreeable to this plan of care and follow-up instructions have been explained in detail. The patient and/or caregivers have received these instruction. The patient/and or caregivers are aware that any significant change in condition or worsening of symptoms should prompt an immediate return to this or the closest emergency department or call 911.
== END 2023-11-15 18:18 | disposition home or self-care (01) ==
LOC: ED 17:09
DX: Z04.3 Encounter for examination and observation following other accident (principal); I10 Essential (primary) hypertension; E11.9 Type 2 diabetes mellitus without complications; Z79.4 Long term (current) use of insulin; Z79.85 Long-term (current) use of injectable non-insulin antidiabetic drugs; Z79.84 Long term (current) use of oral hypoglycemic drugs; Z79.899 Other long term (current) drug therapy; Z59.9 Problem related to housing and economic circumstances, unspecified; Z58.89 Other problems related to physical environment; Z59.41 Food insecurity
CPT/HCPCS: 99281

== ENCOUNTER 2024-05-11 13:42 | Emergency (ER) | payer MEDICARE ==
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
[2024-05-11 13:56] VITALS: PULSE 94; TEMP 97.3
--- NOTE | 2024-05-11 15:09 | XRAY ---
Indication: Severe pain. Right hip degenerative arthropathy and right hip radiograph April 05, 2023. Multiple contiguous axial images obtained through the right hip. Sagittal and coronal reformatted images obtained. Images degraded by patient body habitus. Osseous structures remain demineralized. Progressive worsening moderate/advanced degenerative arthropathy as evidenced by weightbearing joint space loss, bony sclerosis/spurring, and tiny subcortical cysts. Stable small spurring greater trochanter. No acute fracture, dislocation, or suspicious bony lesions. Visualized noncontrasted soft tissues are negative for focal solid/cystic soft tissue mass. Small fatty umbilical hernia. Visualized pelvis unremarkable. Impression: 1. Limited exam due to patient body habitus. 2. Progressive worsening moderate/advanced degenerative arthropathy. No acute findings. 3. Incidental fatty umbilical hernia.
[2024-05-11] MEDS ORDERED: PERCOCET TABLET 5/325MG ONE (15:31)
[2024-05-11] MEDS ORDERED: DELTASONE 20 MG ONE (15:32)
[2024-05-11] MEDS: PERCOCET TABLET 5/325MG PO STA (15:35)
[2024-05-11] MEDS: DELTASONE 20 MG PO ONE (15:35)
[2024-05-11 16:18] VITALS: BP 130/76; O2SAT 95
== END 2024-05-11 16:18 | disposition home or self-care (01) ==
LOC: ED 13:42
DX: M16.11 Unilateral primary osteoarthritis, right hip (principal); M25.551 Pain in right hip; Z59.811 Housing instability, housed, with risk of homelessness
CPT/HCPCS: 73700; 99284; A9270-GY

== ENCOUNTER 2024-06-14 20:36 | Emergency (ER) | payer MEDICARE ==
[2024-06-14 20:54] VITALS: TEMP 98.5
[2024-06-14] MEDS ORDERED: NORCO 5/325 MG ONE (20:57)
[2024-06-14] MEDS: NORCO 5/325 MG PO ONE (20:58)
[2024-06-14 21:59] VITALS: RESP 20; O2SAT 94
--- NOTE | 2024-06-14 22:29 | ERPHSYRPT ---
- History of Present Illness Time Seen by Provider: 06/14/24 20:47 Source: patient, family, EMS Exam Limitations: no limitations Patient Subjective Stated Complaint: c/o right hip pain Triage Nursing Assessment: patient brought to ED by ambulance with c/o of right hip pain. patiwnt states that she has troubles getting up and down her stairs. patient rates pain 5/10, denies falling but EMS had her slide down her stairs slowly. BLE swelling, patient states that the pain radiates down her leg, vitals wnl, skin w/n/d, patient doesn't appear to be in any distress at this time. Physician History: 68 years old female with multiple medical problems including morbid obesity, hypertension, hyperlipidemia, hypothyroidism, diabetes mellitus, chronic lymphedema, issues with ambulation at her baseline especially going up and down stairs where she needs help. She has been calling EMS multiple times lately to help her go up or down. Patient called earlier because she was having hard time getting down and EMS help and brought her in here. Patient denies any fall or trauma to the hip. Complaining of pain mild to moderate right hip with ambulation and weightbearing. No shortening or rotation. No numbness or weakness of lower extremities. Has chronic swelling lower extremities which is not any worse than usual. Allergies/Adverse Reactions: Sulfa (Sulfonamide Antibiotics) Allergy (Verified 06/14/24 20:54) Home Medications: Colesevelam HCl 625 mg [Welchol 625 mg] 1,875 mg PO BID 07/15/15 [History] Furosemide 40 mg [Lasix 40 MG] 80 mg PO DAILY 07/15/15 [History] Insulin Aspart [Novolog Flexpen] 15 unit SQ AC 07/15/15 [History] Levothyroxine Sodium 25 Mcg [Synthroid 25 Mcg] 25 mcg PO DAILY 07/15/15 [History] Liraglutide [Victoza 2-Rah] 1.8 mg SQ BID 07/15/15 [History] Lisinopril 10 mg [Zestril 10 MG] 20 mg PO DAILY 07/15/15 [History] Sitagliptin Phos/Metformin HCl [Janumet 50-500 mg Tablet] 1 tablet PO BID 07/15/15 [History] Venlafaxine HCl ER 75 mg [Effexor XR 75 MG] 75 mg PO DAILY 07/15/15 [History] Carvedilol 3.125 mg [Coreg 3.125 MG] 12.5 mg PO BID 07/31/15 [History] Potassium Chloride [Potassium Chloride 20MEQ/15ML] 20 meq PO TID 07/31/15 [History] Metformin HCl 500 mg [Glucophage 500 MG] 500 mg PO BIDWM 03/02/18 [History] Omeprazole 40 mg PO DAILY 03/02/18 [History] Albuterol Sulfate [Ventolin Hfa] 2 puffs PO QID 02/05/19 [History] Atorvastatin Calcium 40 mg PO DAILY 02/05/19 [History] Budesonide/Formoterol Fumarate [Symbicort 80-4.5 Mcg Inhaler] 2 puff PO DAILY 02/05/19 [History] Fluticasone Propionate [Flonase NASAL] 1 spray .ROUTE DAILY 02/05/19 [History] Amlodipine Besylate [Norvasc] 2.5 mg PO DAILY 10/08/21 [History] Insulin Detemir [Levemir] 30 unit SQ BID 10/08/21 [History] Ketoconazole Cream [Nizoral CREAM] 0 gm TOP BID 10/09/21 [History] Permethrin Cream [Elimite CREAM] 0 gm TP DAILY 10/09/21 [History] Hx Tetanus, Diphtheria Vaccination/Date Given: No Hx Influenza Vaccination/Date Given: No Hx Pneumococcal Vaccination/Date Given: No Travel Risk - International Travel Have you traveled outside of the country in past 3 weeks: No - Emerging Infectious Disease Are you exhibiting symptoms associated with any current EIDs: No - Review of Systems Constitutional: No Symptoms Ears, Nose, & Throat: No Symptoms Respiratory: Dyspnea Cardiac: Edema Abdominal/Gastrointestinal: No Symptoms Musculoskeletal: Arthralgias, Joint Pain Skin: No Symptoms Neurological: No Symptoms - Past Medical History Pertinent Past Medical History: Yes Neurological History: No Pertinent History ENT History: No Pertinent History Cardiac History: Hypertension, Other Respiratory History: Other Endocrine Medical History: Diabetes Type II Musculoskeletal History: No Pertinent History GI Medical History: No Pertinent History History: No Pertinent History Psycho-Social History: Anxiety, Depression Female Reproductive Disorders: Cervical Cancer Other Medical History: SMALL HOLE IN HER HEART, EDEMA IN B LE, SOB UPON EXERTION - Past Surgical History Past Surgical History: Yes Neuro Surgical History: No Pertinent History Cardiac: No Pertinent History Respiratory: No Pertinent History Gastrointestinal: Appendectomy Genitourinary: No Pertinent History Musculoskeletal: No Pertinent History Female Surgical History: Dilation & Curettage, Tubal Ligation Other Surgical History: D&C, i&d abcess L chest, surgery on right lower abdomen for CA (patient unsure of what cancer) - Social History Smoking Status: Never smoker Exposure to second hand smoke: No Drug Use: none Patient Lives Alone: No - Social Determinants of Health Will the patient participate in the screening: Yes Do you worry about a steady place to live?: No Do you have any problems with any of the following?: Unsafe terrance/stairs In the past 12 months,have you had to go without utilities?: No Transportation Issues: No Has anyone in your support network made you feel unsafe?: No Have you or anyone in your house had to go without enough: No - Nursing Vital Signs Nursing Vital Signs: Initial Vital Signs Temperature 98.5 F 06/14/24 20:38 Pulse Rate 115 H 06/14/24 20:38 Blood Pressure 162/67 06/14/24 20:38 Pain Scale Pain Intensity 5 - Physical Exam General Appearance: no apparent distress Neck Exam: normal inspection, full range of motion Cardiovascular/Respiratory Exam: normal breath sounds, tachycardia Hips Exam: right: bone tenderness, pain, left: non-tender, no evidence of injury, bilateral: normal inspection, normal range of motion Legs Exam: bilateral leg: non-tender, normal range of motion, no evidence of injury Neuro/Tendon Exam: normal sensation, normal motor functions Mental Status Exam: alert, oriented x 3, cooperative Skin Exam: normal color SpO2 Interpretation: normal SpO2: 94 O2 Delivery: Room Air Ordered Tests: Active Orders 24 hr Category Date Time Status HIP UNI (2V) INCL PEL IF DONE Stat Exams 06/14/24 21:18 Taken Medication Summary Discontinued Medications Generic Name Dose Route Start Last Admin Trade Name Freq PRN Reason Stop Dose Admin Hydrocodone Bitart/Acetaminophen 1 tab 06/14/24 20:52 06/14/24 20:58 Hydrocodone/Apap 5/325 1 Tab Tablet PO 06/14/24 20:53 1 tab STAT ONE Administration Hydrocodone Bitart/Acetaminophen Confirm 06/14/24 20:57 Hydrocodone/Apap 5/325 1 Tab Tablet Administered 06/14/24 20:58 Dose 1 tab .ROUTE .STK-MED ONE - Progress Progress: improved Progress Note: 06/14/24 22:31 68 years old with multiple medical problems including hypertension, diabetes mellitus, hypothyroidism, chronic pain, COPD is evaluated in the ER for right hip pain without any fall or trauma. Patient has no shortening or rotation. Negative neuroexam in lower extremities for cauda equina. X-rays showed arthritic changes but no acute fracture dislocation reviewed by me followed by official read. She is given [place], feeling better on reevaluation. Patient does not have any other complaints. She is advised to use walker all the time for ambulation to avoid fall. Recommended outpatient orthopedic follow-up for further evaluation to see if she could qualify for hip replacement. Discussed signs symptoms of worsening needing return to ER which she seems understanding. Counseled pt/family regarding: diagnosis, need for follow-up, rad results Medical Desision Making - Diagnostic Testing Diagnostic test were ordered, analyzed, and reviewed by me: Yes Radiological Interpretation: Interpreted by me, Reviewed by me - Risk of complications The pt has a mod risk of morbidity or mortality based on: Need for prescription drug management - Departure Departure Disposition: Home Clinical Impression: Right hip pain Condition: Stable Critical Care Time: No Referrals: LAQUITA CEDEÑO MD [Primary Care Provider] - Follow up with PCP 1 day GIFTY JEFFREY DO [ACTIVE STAFF] - Follow up/PCP as directed (call for appointment ) Instructions: Preventing falls in adults, Hip Pain ED Additional Instructions: Take pain medications as needed. Follow-up with orthopedics/primary care for reevaluation. Use walker for ambulation all the time to avoid a fall. Return to ER for any worsening.
[2024-06-14 23:38] VITALS: BP 126/59; PULSE 105
--- NOTE | 2024-06-15 09:16 | XRAY ---
Indication: Pain following fall. Comparison: April 05, 2023 2 view right hip again demonstrates osteopenia. Progressive worsening moderate/advanced degenerative arthropathy as evidenced by joint space loss and bony sclerosis/spurring. No acute bony, articular, or soft tissue abnormalities.
== END 2024-06-14 23:53 | disposition home or self-care (01) ==
LOC: ED 20:36
DX: M25.551 Pain in right hip (principal); I10 Essential (primary) hypertension; E78.5 Hyperlipidemia, unspecified; E11.9 Type 2 diabetes mellitus without complications; Z79.4 Long term (current) use of insulin; Z79.85 Long-term (current) use of injectable non-insulin antidiabetic drugs; Z79.84 Long term (current) use of oral hypoglycemic drugs; Z79.899 Other long term (current) drug therapy; Z59.19 Other inadequate housing
CPT/HCPCS: 73502; 99283; A9270-GY

== ENCOUNTER 2024-07-13 12:23 | Emergency (ER) | payer MEDICARE ==
[2024-07-13 12:26] VITALS: TEMP 97.2
--- NOTE | 2024-07-13 12:37 | ERPHSYRPT ---
- History of Present Illness Time Seen by Provider: 07/13/24 12:36 Source: patient, family, EMS Exam Limitations: no limitations Patient Subjective Stated Complaint: pt here for pain to right hip after falling this morning while bending over Triage Nursing Assessment: pt alert, wakled in, resp easy, skin w/d/p. pain to right hip, pt is gaulded to abd, [place] area, open sores and redness to buttock Physician History: This is a morbidly obese 68-year-old white female patient Dr. Connolly who was brought to the emergency department by the paramedics secondary to a fall that occurred while she was bending over to pick something up. She is having right hip pain after the fall. She did not hit her head. She does not have neck pain abdominal pain or chest pain. She is not short of breath. Ordinarily, the patient uses a walker or cane to assist with ambulation. Patient has a history of diabetes, hypertension, anxiety, depression and gastroesophageal reflux disease. Additional, independent history was provided by the patient's significant other. Occurred: just prior to arrival Reason for Fall: lost balance Injuries/Pain Location: pelvis (Right hip and pelvis) Loss of Consciousness: no loss of consciousness Quality: aching Severity of Pain-Max: moderate Severity of Pain-Current: moderate Associated Symptoms (Fall): back pain (Back pain), extremity injury (Right hip), trouble walking, No abdominal pain, No chest pain, No dizziness Allergies/Adverse Reactions: Sulfa (Sulfonamide Antibiotics) Allergy (Verified 07/13/24 12:24) Home Medications: Colesevelam HCl 625 mg [Welchol 625 mg] 1,875 mg PO BID 07/15/15 [History] Furosemide 40 mg [Lasix 40 MG] 80 mg PO DAILY 07/15/15 [History] Insulin Aspart [Novolog Flexpen] 15 unit SQ AC 07/15/15 [History] Levothyroxine Sodium 25 Mcg [Synthroid 25 Mcg] 25 mcg PO DAILY 07/15/15 [History] Liraglutide [Victoza 2-Rah] 1.8 mg SQ BID 07/15/15 [History] Lisinopril 10 mg [Zestril 10 MG] 20 mg PO DAILY 07/15/15 [History] Sitagliptin Phos/Metformin HCl [Janumet 50-500 mg Tablet] 1 tablet PO BID 07/15/15 [History] Venlafaxine HCl ER 75 mg [Effexor XR 75 MG] 75 mg PO DAILY 07/15/15 [History] Carvedilol 3.125 mg [Coreg 3.125 MG] 12.5 mg PO BID 07/31/15 [History] Potassium Chloride [Potassium Chloride 20MEQ/15ML] 20 meq PO TID 07/31/15 [History] Metformin HCl 500 mg [Glucophage 500 MG] 500 mg PO BIDWM 03/02/18 [History] Omeprazole 40 mg PO DAILY 03/02/18 [History] Albuterol Sulfate [Ventolin Hfa] 2 puffs PO QID 02/05/19 [History] Atorvastatin Calcium 40 mg PO DAILY 02/05/19 [History] Budesonide/Formoterol Fumarate [Symbicort 80-4.5 Mcg Inhaler] 2 puff PO DAILY 02/05/19 [History] Fluticasone Propionate [Flonase NASAL] 1 spray .ROUTE DAILY 02/05/19 [His tory] Amlodipine Besylate [Norvasc] 2.5 mg PO DAILY 10/08/21 [History] Insulin Detemir [Levemir] 30 unit SQ BID 10/08/21 [History] Ketoconazole Cream [Nizoral CREAM] 0 gm TOP BID 10/09/21 [History] Permethrin Cream [Elimite CREAM] 0 gm TP DAILY 10/09/21 [History] Hx Tetanus, Diphtheria Vaccination/Date Given: No Hx Influenza Vaccination/Date Given: No Hx Pneumococcal Vaccination/Date Given: No Immunizations Up to Date: Yes Travel Risk - International Travel Have you traveled outside of the country in past 3 weeks: No - Emerging Infectious Disease Are you exhibiting symptoms associated with any current EIDs: No - Review of Systems Constitutional: No Symptoms Eyes: No Symptoms Ears, Nose, & Throat: No Symptoms Respiratory: No Symptoms Cardiac: No Symptoms Abdominal/Gastrointestinal: No Symptoms Genitourinary Symptoms: No Symptoms Musculoskeletal: Back Pain, Fall (From a bending over position), Injury (Right hip and lower back) Skin: No Symptoms Neurological: No Symptoms Psychological: No Symptoms Endocrine: No Symptoms Hematologic/Lymphatic: No Symptoms Immunological/Allergic: No Symptoms All Other Systems: Reviewed and Negative - Past Medical History Pertinent Past Medical History: Yes Neurological History: No Pertinent History ENT History: No Pertinent History Cardiac History: Hypertension, Other Respiratory History: Other Endocrine Medical History: Diabetes Type II Musculoskeletal History: No Pertinent History GI Medical History: No Pertinent History History: No Pertinent History Psycho-Social History: Anxiety, Depression Female Reproductive Disorders: Cervical Cancer Other Medical History: SMALL HOLE IN HER HEART, EDEMA IN B LE, SOB UPON EXERTION - Past Surgical History Past Surgical History: Yes Neuro Surgical History: No Pertinent History Cardiac: No Pertinent History Respiratory: No Pertinent History Gastrointestinal: Appendectomy Genitourinary: No Pertinent History Musculoskeletal: No Pertinent History Female Surgical History: Dilation & Curettage, Tubal Ligation Other Surgical History: D&C, i&d abcess L chest, surgery on right lower abdomen for CA (patient unsure of what cancer) - Social History Smoking Status: Never smoker Exposure to second hand smoke: No Drug Use: none - Social Determinants of Health Will the patient participate in the screening: Yes Do you worry about a steady place to live?: No Do you have any problems with any of the following?: No known problems In the past 12 months,have you had to go without utilities?: No Transportation Issues: No Has anyone in your support network made you feel unsafe?: No Have you or anyone in your house had to go w/o enough food: No - Nursing Vital Signs Nursing Vital Signs: Initial Vital Signs Blood Pressure 153/95 07/13/24 12:22 O2 Sat by Pulse Oximetry 71 L 07/13/24 12:22 Pain Scale Pain Intensity 0 - [place] Coma Score Best Eye Response (Anthony): (4) open spontaneously Best Verbal Response (Anthony): (5) oriented Best Motor Response (Anthony): (6) obeys commands Anthony Total: 15 - Physical Exam General Appearance: no apparent distress, alert, anxiety, obese Head Injury: no evidence of injury Eye Exam: PERRL/EOMI, eyes nml inspection ENT Exam: airway nml, nml ext.inspection, No evidence of ENT injury Neck Exam: supple, trachea midline, full range of motion, normal alignment Respiratory/Chest Exam: normal breath sounds, No chest tenderness, No respiratory distress Cardiovascular Exam: normal heart sounds, regular rate/rhythm Gastrointestinal Exam: soft, normal bowel sounds, No tenderness Rectal Exam: not done Back Exam: normal inspection, normal range of motion, decreased range of motion, No CVA tenderness, No vertebral tenderness Extremity Exam: normal inspection, normal range of motion, pelvis stable, hip t enderness (Right side), pain with movement (Right hip), No deformities Neurologic Exam: alert, oriented x 3, cooperative, 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, normal mood/affect, sensation nml Skin Exam: normal color, warm, dry SpO2 Interpretation: normal SpO2: 100 O2 Delivery: Room Air - Course Nursing assessment & vital signs reviewed: Yes Ordered Tests: Active Orders 24 hr Category Date Time Status IV Insertion STAT Care 07/13/24 18:12 Active HIP (1V) INCL PEL IF DONE Stat Exams 07/13/24 13:08 Taken LOWER EXTREMITY WO CONTRAST [CT] Stat Exams 07/13/24 14:18 Completed LUMBAR LIMITED (2 OR 3 VIEWS) Stat Exams 07/13/24 13:08 Completed LUMBAR SPINE W/O [CT] Stat Exams 07/13/24 14:18 Completed CBC W DIFF Stat Lab 07/13/24 18:35 Completed CMP Stat Lab 07/13/24 18:35 Completed CULTURE,URINE Stat Lab 07/13/24 19:46 Received UA W/RFX UR CULTURE Stat Lab 07/13/24 19:42 Received Lab/Rad Data: Laboratory Result Diagrams 07/13/24 18:35 07/13/24 18:35 Laboratory Results 07/13/24 07/13/24 Range/Units 18:35 18:35 WBC 12.7 H (3.98-10.04) x10^3/uL RBC 3.97 (3.93-5.22) x10^6/uL Hgb 9.6 L (11.2-15.7) g/dL Hct 31.4 L (34.1-44.9) % MCV 79.1 L (79.4-94.8) fL MCH 24.2 L (25.6-32.2) pg MCHC 30.6 L (32.2-35.5) g/dL RDW 15.8 H (11.7-14.4) % Plt Count 544 H (182-369) x10^3/uL MPV 10.0 (9.4-12.3) fL Gran % 82.6 H (34.0-71.1) % Immature Gran % (Auto) 0.4 (0.001-0.429) % Nucleat RBC Rel Count 0.0 (0.00-0.2) % Eos # (Auto) 0 L (0.04-0.36) x10^3/uL Immature Gran # (Auto) 0.05 H (0.001-0.031) x10^3u/L Absolute Lymphs (auto) 1.21 (1.18-3.74) x10^3/uL Absolute Monos (auto) 0.93 H (0.24-0.86) x10^3/uL Absolute Nucleated RBC 0.00 (0.00-0.012) x10^3u/L Lymphocytes % 9.5 L (19.3-51.7) % Monocytes % 7.3 (4.7-12.5) % Eosinophils % 0.0 L (0.7-5.8) % Basophils % 0.2 (0.1-1.2) % Absolute Granulocytes 10.50 H (1.56-6.13) x10^3/uL Basophils # 0.03 (0.01-0.08) x10^3/uL Sodium 142 (135-145) mmol/L Potassium 4.6 (3.5-5.1) mmol/L Chloride 108 H (98-107) mmol/L Carbon Dioxide 20 L (22-30) mmol/L Anion Gap 19.0 H (5-15) MEQ/L BUN 29 H (7-17) mg/dL Creatinine 1.32 H (0.52-1.04) mg/dL Estimated GFR 44.0 ML/MIN Glucose 145 H (74-106) mg/dL Calcium 9.7 (8.4-10.2) mg/dL Total Bilirubin 0.80 (0.2-1.3) mg/dL AST 168 H (14-36) U/L ALT 43 H (0-35) U/L Alkaline Phosphatase 106 (38-126) U/L Serum Total Protein 7.6 (6.3-8.2) g/dL Albumin 4.0 (3.5-5.0) g/dL - Progress Progress: unchanged Progress Note: 07/13/24 14:03 My medical decision making and the assignment of low to moderate complexity of this patient's medical issue today is based on review of the patient's past medical history, review the patient's medication list, review patient drug allergy list, history present illness and physical findings on examination. The workup in this patient includes x-ray of the right hip and pelvis as well as lumbar spine. Differential diagnosis includes but is not limited to right hip fracture, right hip contusion, pelvis fracture, pelvic contusion, low back pain/contusion, lumbar spine fracture/subluxation 07/13/24 18:15 I interpreted the preliminary report of the patient's right hip x-ray. This x- ray shows comminuted fracture of the intertrochanteric proximal shaft of the right femur. CT scan of the right hip shows comminuted fracture of the intertrochanteric proximal shaft of the right hip. This study was interpreted by the radiologist The CT scan of the lumbar spine was interpreted by the radiologist and I reviewed the impression. The impression states no fractures or subluxations. Multilevel degenerative changes. Multiple posterior disc bulges of the lumbar spine 07/13/24 20:11 Transfer center at [facility] excepted this patient as auto acceptance after they received the information of the chief complaint, physical findings and workup results. The patient be transferred to emergency department to emergency department in the excepting orthopedic surgeon is Dr. Taylor Counseled pt/family regarding: diagnosis, rad results Medical Desision Making - Independent Historian Additional History obtained from: Spouse - Diagnostic Testing Diagnostic test were ordered, analyzed, and reviewed by me: Yes Radiological Interpretation: Interpreted by me, Reviewed by me, Teleradiologist Report - Risk of complications The pt has a high risk of morbidity or mortality based on: Decision regarding hospitilization or escalation of hosp level of care - Departure Departure Disposition: Transfer Clinical Impression: Fracture, intertrochanteric, right femur, Morbid obesity Condition: Stable Critical Care Time: No Referrals: LAQUITA CONNOLLY MD [Primary Care Provider] - Follow up/PCP as directed
--- NOTE | 2024-07-13 15:07 | XRAY ---
CLINICAL HISTORY: Fall injury COMPARISON: None. TECHNIQUE: X-ray images of the lumbar spine were obtained in AP and soft lateral positions. FINDINGS: Bone: Normal bone alignment. No abnormal osseous lesions. Comminuted intertrochanteric fracture extending to the proximal shaft of the right femur. Joint: Advanced osteoarthritis changes of the right hip. Lumbar intervertebral disc narrowing, subchondral sclerosis, and marginal osteophytes. Clear normal sacroiliac joints. Facet joint: Narrowing and subchondral sclerosis. Soft tissue: Right iliac fossa oval calcified shadow suggests ultrasound or CT pelvis. IMPRESSION: 1. Comminuted intertrochanteric fracture extending to the proximal shaft of the right femur. Suggest orthopedic assessment. 2. Lumbar spondylosis with facet arthropathy. 3. Advanced osteoarthritis changes of the right hip. Electronically Signed by: Remy Sanches MD. (07/13/2024 15:02:15 EST)
--- NOTE | 2024-07-13 16:57 | XRAY ---
CLINICAL HISTORY: Fall injury COMPARISON: 07/13/2024 xray. TECHNIQUE: Multiple, contiguous, nonenhanced CT scan of the right hip joint in axial plane with multiplanar reconstructions. One of the following dose reduction techniques was utilized for this exam: Automated exposure control, adjustment of the mA and/or kV according to patient size, and use of iterative reconstruction. CTDI: 74.67 mGy, DLP: 1917.89 mGy*cm. FINDINGS: Bones: Evidence of comminuted fracture of the intertrochanteric region of the right femur extending to the upper femoral shaft with dorsal displacement of the shaft by 17 mm and multiple bony fragments. surrounding soft-tissue and muscular edema are also noted. No evidence of avascular necrosis of the femoral heads. Joints: Advanced osteoarthritic changes of the right hip joint are denoted by narrowed disc space, multiple subchondral cystic changes, and sclerosis as well as osteopytosis. NO evidence of subluxation or dislocation of the femoral head. No evidence of joint effusions or intra-articular loose bodies. Soft Tissues: Diffuse atrophic changes of the scanned muscles. An oval shaped anterior subcutaneous tissue lesion of the pelvis measuring about 21 x17 of fat content with marginal calcifications within a small anterior abdominal wall hernia. Diffuse subcutaneous tissue edema of the anterior aspect of the pelvis. IMPRESSION: 1. Comminuted fracture of the intertrochanteric region of the right femur extending to the upper femoral shaft with dorsal displacement of the shaft by 17 mm and multiple bony fragments with surrounding soft tissue and muscular edema are also noted. 2. Advanced osteoarthritic changes of the right hip joint. 3. Diffuse atrophic changes of the scanned muscles. 4. A benign-looking oval-shaped anterior subcutaneous tissue lesion of the pelvis measuring about 21 x17 of fat content with marginal calcifications within a small anterior abdominal wall hernia. 5. Diffuse subcutaneous tissue edema of the anterior aspect of the pelvis. [facility] was called at at 3:47 PM [employer] 07/13/2024 and Jemima (Nurse) was informed regarding the presence of significant medical findings in the report. Electronically Signed by: Remy Sanches MD. (07/13/2024 16:52:43 EST)
--- NOTE | 2024-07-13 17:15 | XRAY ---
CLINICAL HISTORY: Fall injury COMPARISON: None. TECHNIQUE: CT non-contrast scan of lumbar spine done. Axial images obtained with reformatted coronal and sagittal images and submitted for interpretation. One of the following dose reduction techniques were utilized for this exam: Automated exposure control, adjustment of the mA and/or kV according to patient size, use of iterative reconstruction. FINDINGS: Vertebrae: Reduced lumbar lordosis Spondylodegenerative changes of the lumbar spine with marginal osteophytes, narrowing of intervertebral discs and disc space air vacuum phenomenon. Mild anterolithesis of L4 over L5 vertebrae secondary to corresponding bilateral L4/5 facet joints arthropathies. Minimal retrolithesis of L1 over L2 vertebrae with posterior osteophytes formation. Diffuse osteopenic texture of bones. No fractures, lytic or sclerotic lesions. Intervertebral Discs: Intervertebral discs are narrowed and show air vacuum phenomenon. Variable degrees of L1-2 down to L5-S1 posterior disc bulges with osteophytes are seen indenting the thecal sac and encroaching upon exit neural foramina. Spinal Canal and Neural Foramina: Spinal canal is of normal caliber with no evidence of spinal stenosis. Mild bilateral neural foraminal compromise is noted at almost all level caused by posterior osteophytes and lumbar disc bulges. Facet Joints: L3-4 down to L5-S1 facet joints arthropathies. Soft Tissues: Right lower calyceal small stones are seen. Bilateral adrenal small lesions, largest on right side. Atherosclerotic aortic calcifications. IMPRESSION: 1. No visualized fractures. 2. Spondylodegenerative changes of the lumbar spine with marginal osteophytes, narrowing of intervertebral discs and disc space air vacuum phenomenon. 3. Mild anterolithesis of L4 over L5 vertebrae secondary to corresponsing bilateral L4/5 facet joints arthropathies. 4. Minimal retrolithesis of L1 over L2 vertebrae with posterior osteophytes formation. 5. Diffuse osteopenic texture of bones. 6. Variable degrees of L1-2 down to L5-S1 posterior disc bulges with osteophytes are seen indenting the thecal sac and encroaching upon exit neural foramina. 7. L3-4 down to L5-S1 faset joints arthropathies Electronically Signed by: Remy Sanches MD. (07/13/2024 17:10:53 EST)
[2024-07-13 18:45] LABS: BASOPHIL % 0.2 % (0.1-1.2); Basophil (Absolute #) 0.03 x10^3/uL (0.01-0.08); Eosinophil (Absolute #) 0 x10^3/uL (0.04-0.36); Hematocrit 31.4 % (34.1-44.9); Hemoglobin 9.6 g/dL (11.2-15.7); IMMATURE GRAN # 0.05 x10^3u/L (0.001-0.031); IMMATURE GRAN % 0.4 % (0.001-0.429); Lymphocyte (Absolute #) 1.21 x10^3/uL (1.18-3.74); Lymphocytes % 9.5 % (19.3-51.7); Mean Cell Volume 79.1 fL (79.4-94.8); Mean Corpuscular Hemoglobin 24.2 pg (25.6-32.2); Mean Corpuscular Hgb Concent. 30.6 g/dL (32.2-35.5); Monocyte (Absolute #) 0.93 x10^3/uL (0.24-0.86); Monocytes % 7.3 % (4.7-12.5); Neutrophil % 82.6 % (34.0-71.1); Platelet Count 544 x10^3/uL (182-369); Red Blood Count 3.97 x10^6/uL (3.93-5.22); Red Cell Distribution Width 15.8 % (11.7-14.4); White Blood Count 12.7 x10^3/uL (3.98-10.04)
[2024-07-13 19:01] LABS: BILIRUBIN,TOTAL 0.8 mg/dL (0.2-1.3); Calcium 9.7 mg/dL (8.4-10.2); Creatinine 1 1.32 mg/dL (0.52-1.04); Potassium 4.6 mmol/L (3.5-5.1); Total Protein 7.6 g/dL (6.3-8.2)
[2024-07-13 20:14] LABS: Appearance Cloudy (Clear); Bacteria Moderate /HPF (None Seen); Bilirubin Negative (Negative); Blood Large (Negative); Epithelial Cells None Seen /HPF (None Seen); Glucose, Urine Negative (Negative); Ketones Negative (Negative); Leukocyte Esterase Trace (Negative); Nitrite Negative (Negative); Protein,Urine Dip Trace (Negative); Urobilinogen 0.2 mg/dL (0.2); WBC 0-2 /HPF (0-5)
[2024-07-13 22:09] VITALS: RESP 18; O2SAT 92
[2024-07-13] MEDS ORDERED: Sodium Chloride 0.9% 500 ML 500 ML IV ONE (22:39)
[2024-07-13] MEDS ORDERED: Levofloxacin 500 MG Tablet ONE (22:39)
[2024-07-13] MEDS: Levofloxacin 500 MG Tablet PO ONE (22:43)
[2024-07-13] MEDS: Sodium Chloride 0.9% 500 ML 500 ML IV ONE (22:44)
[2024-07-13] MEDS ORDERED: Zofran 4 MG/2 ML VIAL ONE (22:51)
[2024-07-13] MEDS: MORPHINE SULFATE 4 MG INJ IV ONE (22:52)
[2024-07-13] MEDS ORDERED: MORPHINE SULFATE 4 MG INJ ONE (22:52)
[2024-07-13] MEDS: Zofran 4 MG/2 ML VIAL IV ONE (22:52)
[2024-07-13 23:05] VITALS: BP 144/62; PULSE 101
--- NOTE | 2024-07-18 09:04 | XRAY ---
CLINICAL HISTORY: Fall injury COMPARISON: None. TECHNIQUE: X-rays of the right hip and pelvis were obtained in AP (anterior-posterior view) and lateral views. FINDINGS: Bone: Right intertrochanteric comminuted fracture extending to right proximal shaft femur. Normal pelvic bones. Joint space: Right hip joint advanced osteoarthritic changes include narrowing of the joint space, subchondral sclerosis, and subarticular pseudocystic changes with fine marginal osteophytes. Clear sacroiliac joints. Soft tissue : Right pelvic oval-shaped calcified shadow. IMPRESSION: - Right intertrochanteric comminuted fracture extending to right proximal shaft femur. Suggest clinical correlation. - Right hip advanced osteoarthritic changes. - Right pelvic oval-shaped calcified shadow. Suggest ultrasound assessment or pelvic CT. DISCLAIMER:A subtle bone abnormality or fracture may not be readily apparent on x-rays, thus clinical correlation and further imaging including follow up CT, MRI, or follow up x-rays are advised as needed. Electronically Signed by: Remy Sanches MD. (07/13/2024 15:44:12 EST) ADDENDUM: 07/13/2024 16:27:29 EST [facility] ER was called at at 02:40 PM SOUND EDITOR, 07/13/[address] Duong was informed regarding the presence of Significant medical findings in the report Electronically Signed by: Remy Sanches MD. (07/13/2024 16:27:29 EST)
== END 2024-07-13 23:00 | disposition short-term general hospital (02) ==
LOC: ED 12:23
DX: S72.141A Displaced intertrochanteric fracture of right femur, initial encounter for closed fracture (principal); W18.39XA Other fall on same level, initial encounter; E66.01 Morbid (severe) obesity due to excess calories; E11.9 Type 2 diabetes mellitus without complications; I10 Essential (primary) hypertension; Z79.4 Long term (current) use of insulin; Z79.84 Long term (current) use of oral hypoglycemic drugs; Z79.85 Long-term (current) use of injectable non-insulin antidiabetic drugs; Z79.899 Other long term (current) drug therapy
CPT/HCPCS: 36415; 51702; 72100; 72131; 73501; 73700; 80053; 81001; 85025; 87077; 87086; 87186; 96374; 96375; 99285; J2270; J2405; A9270-GY